=== PATIENT | male | born 1980 | race Caucasian/White ===

== ENCOUNTER 2018-03-22 12:06 | Emergency (ER) | payer SELFPAY ==
--- NOTE | 2018-03-22 13:08 | ER ---
Nurse's Notes [facility] Name: Asher Gomez Age: 37 yrs Sex: Male : 1980 Arrival Date: 03/22/2018 Time: 12:09 Bed Waiting Private MD: None, None Diagnosis: Presentation: 03/22 12:17 Presenting complaint: Patient states: "I have these spots on my elbows and one on my aj1 chest." Abscess noted to bilateral elbows, small scabbed area surrounded by redness noted to chest. Patient denies fever. Transition of care: patient was not received from another setting of care. Onset of symptoms was March 16, 2018. Risk Assessment: Do you want to hurt yourself or someone else? Patient reports no desire to harm self or others. Initial Sepsis Screen: Does the patient meet any 2 criteria? HR > 90 bpm. Does the patient have a suspected source of infection? Yes: Skin breakdown/wound. Care prior to arrival: None. 12:17 [facility] 12:17 Acuity: HERMELINDO 3 aj1 Triage Assessment: 12:20 General: Appears in no apparent distress. uncomfortable, Behavior is cooperative, aj1 restless. Pain: Complains of pain in right elbow and left elbow Pain currently is 8 out of 10 on a pain scale. Neuro: Level of Consciousness is awake, alert, obeys commands, Oriented to person, place, time, situation, Speech is normal. Cardiovascular: Patient's skin is warm and dry. Respiratory: Airway is patent Respiratory effort is even, unlabored, Respiratory pattern is regular, symmetrical. Derm: Skin is pink, warm \\T\\ dry. normal. Historical: - Allergies: 12:20 No Known Allergies; aj1 - Home Meds: 12:20 None [Active]; aj1 - PMHx: 12:20 Asthma; Bipolar disorder; Diabetes; Hypertension; Sleep Apnea; aj1 - Immunization history:: Flu vaccine is not up to date. - Social history:: Smoking status: Patient uses tobacco products, smokes one pack cigarettes per day. - Ebola Screening: : Patient denies travel to an Ebola-affected area in the 21 days before illness onset. Assessment: 13:06 Reassessment: pt not in lobby or parking lot. iw Vital Signs: 12:20 BP 130 / 101; Pulse 124; Resp 20; Temp 98.0(O); Pulse Ox 97% on R/A; Weight 120.2 kg aj1 (R); Height 5 ft. 6 in. (167.64 cm) (R); Pain 8/10; 12:20 Body Mass Index 42.77 (120.20 kg, 167.64 cm) aj1 ED Course: 12:09 Patient arrived in ED. mr 12:09 None, None is Private Physician. mr 12:19 Triage completed. aj1 12:20 Arm band placed on Patient placed in waiting room, Patient notified of wait time. aj1 12:56 Patient's name was called from ER lobby. No response. iw Administered Medications: No medications were administered Outcome: 13:07 Patient left the ED. iw Signatures: Sienna Rush, RN RN aj1 Yelena Goff mr Martha Romero, THERESA RN iw
== END 2018-03-22 13:07 | disposition left against medical advice (07) ==
LOC: ER 12:06
DX: Z53.21 Procedure and treatment not carried out due to patient leaving prior to being seen by health care provider (principal)
CPT/HCPCS: 99281

== ENCOUNTER 2018-03-23 04:38 | Emergency (ER) | payer SELFPAY ==
[2018-03-23] MEDS ORDERED: LIDOCAINE 1% MPF 5 ML VIAL ONE (05:13)
--- NOTE | 2018-03-23 05:23 | ER ---
Nurse's Notes [facility] Name: Asher Gomez Age: 37 yrs Sex: Male : 1980 Arrival Date: 03/23/2018 Time: 04:39 Bed 5 Private MD: Diagnosis: Abscess right arm Presentation: 03/23 05:03 Presenting complaint: Patient states: "I have these sores on my elbows and I think they jd3 might be infected.". Transition of care: patient was not received from another setting of care. Onset of symptoms was March 23, 2018. Risk Assessment: Do you want to hurt yourself or someone else? Patient reports no desire to harm self or others. Initial Sepsis Screen: Does the patient meet any 2 criteria? HR > 90 bpm. Yes Does the patient have a suspected source of infection? Yes: Skin breakdown/wound. Care prior to arrival: None. 05:03 Method Of Arrival: Ambulatory jd3 05:03 Acuity: HERMELINDO 4 jd3 Historical: - Allergies: 05:06 No Known Allergies; jd3 - Home Meds: 05:06 None [Active]; jd3 - PMHx: 05:06 Asthma; Bipolar disorder; Diabetes; Hypertension; Sleep Apnea; jd3 - PSHx: 05:06 None; jd3 - Immunization history:: Adult Immunizations up to date. - Social history:: Smoking status: Patient uses tobacco products, smokes one pack cigarettes per day. - Ebola Screening: : Patient negative for fever greater than or equal to 101.5 degrees Fahrenheit, and additional compatible Ebola Virus Disease symptoms. Screenin:09 Abuse screen: Denies threats or abuse. Nutritional screening: No deficits noted. jd3 Tuberculosis screening: No symptoms or risk factors identified. Fall Risk Ambulatory Aid- None/Bed Rest/Nurse Assist (0 pts). Gait- Normal/Bed Rest/Wheelchair (0 pts) Mental Status- Oriented to own ability (0 pts). Total Rodney Fall Scale indicates No Risk (0-24 pts). Assessment: 05:08 General: Appears in no apparent distress. uncomfortable, Behavior is calm, cooperative, jd3 appropriate for age. Pain: Complains of pain in right elbow and left elbow. Neuro: Level of Consciousness is awake, alert, obeys commands, Oriented to person, place, time, situation. Cardiovascular: Capillary refill < 3 seconds Patient's skin is warm and dry. Respiratory: Airway is patent Respiratory effort is even, unlabored, Respiratory pattern is regular, symmetrical. GI: No signs and/or symptoms were reported involving the gastrointestinal system. : No signs and/or symptoms were reported regarding the genitourinary system. EENT: No signs and/or symptoms were reported regarding the EENT system. Derm: Skin is intact, Skin is dry, Skin is normal, Skin temperature is warm Wound noted right elbow and left elbow Wound is wounds are open, with swelling and redness noted. Musculoskeletal: Circulation, motion, and sensation intact. Range of motion: intact in all extremities. 05:30 Reassessment: Patient appears in no apparent distress at this time. Patient and/or jd3 family updated on plan of care and expected duration. Pain level reassessed. Patient is alert, oriented x 3, equal unlabored respirations, skin warm/dry/pink. Vital Signs: 05:06 BP 149 / 109; Pulse 113; Resp 16 S; Temp 98.6(O); Pulse Ox 98% on R/A; Weight 120.2 kg jd3 (R); Height 5 ft. 6 in. (167.64 cm) (R); Pain 8/10; 05:06 Body Mass Index 42.77 (120.20 kg, 167.64 cm) jd3 ED Course: 04:39 Patient arrived in ED. am2 04:54 Hunter Rios MD is Attending Physician. pkl 04:54 Paulo Garcia, RN is Primary Nurse. jd3 05:05 Triage completed. jd3 05:07 Arm band placed on. jd3 05:09 Patient has correct armband on for positive identification. Bed in low position. Call j light in reach. Side rails up X 1. 05:20 Assist provider with I \\T\\ D: of an abscess on right upper arm Set up I\\T\\D tray. Performed tl 1 by Hunter Rios MD Culture sent to lab. Wound packed. iodoform gauze, Dressing with 4X4s, Patient tolerated well. Patient did not have IV access during this emergency room visit. 05:23 Eyad Hurtado MD is Referral Physician. pkl Administered Medications: 05:29 Drug: Bactrim (160 mg-800 mg (DS) 1 tablet Route: PO; jd3 05:29 Follow up: Response: Medication administered at discharge. jd3 Outcome: 05:23 Discharge ordered by . pkmayuri 05:30 Discharged to home ambulatory. jd3 05:30 Condition: stable 05:30 Discharge instructions given to patient, Instructed on discharge instructions, follow up and referral plans. medication usage, Demonstrated understanding of instructions, follow-up care, medications, Prescriptions given X 1. 05:31 Patient left the ED. jd3 Addendum: 03/26/2018 07:31 Addendum: Culture Results: Positive wound culture. No further action required. Bacteria i w sensitive to prescribed antibiotic. Signatures: Hunter Rios MD MD pkl Martha Romero RN RN iw Martha Odonnell RN RN tl1 Marcella Aguliera Jonathon, RN RN jd3
--- NOTE | 2018-03-23 05:24 | EDPHYS ---
Physician Documentation [facility] Name: Asher Gomez Age: 37 yrs Sex: Male : 1980 Arrival Date: 03/23/2018 Time: 04:39 Bed 5 Private MD: ED Physician Hunter Rios HPI: 03/23 05:19 This 37 yrs old Male presents to ER via Ambulatory with complaints of Skin pkl Problem. 05:19 The patient presents with an abscess of the right arm. Description: draining, pkl fluctuant, tense. Onset: The symptoms/episode began/occurred 4 day(s) ago. Historical: - Allergies: 05:06 No Known Allergies; jd3 - Home Meds: 05:06 None [Active]; jd3 - PMHx: 05:06 Asthma; Bipolar disorder; Diabetes; Hypertension; Sleep Apnea; jd3 - PSHx: 05:06 None; jd3 - Immunization history:: Adult Immunizations up to date. - Social history:: Smoking status: Patient uses tobacco products, smokes one pack cigarettes per day. - Ebola Screening: : Patient negative for fever greater than or equal to 101.5 degrees Fahrenheit, and additional compatible Ebola Virus Disease symptoms. ROS: 05:19 Eyes: Negative for injury, pain, redness, and discharge, ENT: Negative for injury, pkl pain, and discharge, Neck: Negative for injury, pain, and swelling, Cardiovascular: Negative for chest pain, palpitations, and edema, Respiratory: Negative for shortness of breath, cough, wheezing, and pleuritic chest pain, Abdomen/GI: Negative for abdominal pain, nausea, vomiting, diarrhea, and constipation, Back: Negative for injury and pain, : Negative for injury, bleeding, discharge, and swelling, MS/Extremity: Negative for injury and deformity. 05:19 Skin: Positive for abscess, of the right arm. 05:19 Neuro: Negative for altered mental status. Exam: 05:19 Head/Face: Normocephalic, atraumatic. Eyes: Pupils equal round and reactive to light, pkl extra-ocular motions intact. Lids and lashes normal. Conjunctiva and sclera are non-icteric and not injected. Cornea within normal limits. Periorbital areas with no swelling, redness, or edema. ENT: Nares patent. No nasal discharge, no septal abnormalities noted. Tympanic membranes are normal and external auditory canals are clear. Oropharynx with no redness, swelling, or masses, exudates, or evidence of obstruction, uvula midline. Mucous membranes moist. Neck: Trachea midline, no thyromegaly or masses palpated, and no cervical lymphadenopathy. Supple, full range of motion without nuchal rigidity, or vertebral point tenderness. No Meningismus. Chest/axilla: Normal chest wall appearance and motion. Nontender with no deformity. No lesions are appreciated. Cardiovascular: Regular rate and rhythm with a normal S1 and S2. No gallops, murmurs, or rubs. Normal PMI, no JVD. No pulse deficits. Respiratory: Lungs have equal breath sounds bilaterally, clear to auscultation and percussion. No rales, rhonchi or wheezes noted. No increased work of breathing, no retractions or nasal flaring. Abdomen/GI: Soft, non-tender, with normal bowel sounds. No distension or tympany. No guarding or rebound. No evidence of tenderness throughout. Back: No spinal tenderness. No costovertebral tenderness. Full range of motion. Neuro: Awake and alert, GCS 15, oriented to person, place, time, and situation. Cranial nerves II-XII grossly intact. Motor strength 5/5 in all extremities. Sensory grossly intact. Cerebellar exam normal. Normal gait. 05:19 Skin: abscess, that is moderate sized, approximately 3 cm(s), with drainage, with induration. Vital Signs: 05:06 BP 149 / 109; Pulse 113; Resp 16 S; Temp 98.6(O); Pulse Ox 98% on R/A; Weight 120.2 kg jd3 (R); Height 5 ft. 6 in. (167.64 cm) (R); Pain 8/10; 05:06 Body Mass Index 42.77 (120.20 kg, 167.64 cm) jd3 Procedures: 05:19 I \T\ D: Incision and drainage was performed for an abscess of the right Prepped with pkl Betadine, Anesthetized with 3 ml's 1% Lidocaine. Incised with #11 blade. Drained purulent fluid. bloody fluid. Packed with iodoform gauze, Dressing: sterile 4x4 gauze, the patient tolerated the procedure well. MDM: 04:54 Patient medically screened. [facility] 05:19 Data reviewed: vital signs, nurses notes. pkl 03/23 05:20 Order name: Wound Culture bb 03/23 05:20 Order name: Wound Culture bb Administered Medications: 05:29 Drug: Bactrim (160 mg-800 mg (DS) 1 tablet Route: PO; jd3 05:29 Follow up: Response: Medication administered at discharge. jd3 Disposition: 03/23/18 05:23 Discharged to Home. Impression: Abscess right arm. - Condition is Stable. - Prescriptions for Bactrim DS 800- 160 mg Oral Tablet - take 1 tablet by ORAL route every 12 hours for 10 days; 20 tablet. - Medication Reconciliation Form, Thank You Letter, Antibiotic Education, Prescription Opioid Use form. - Follow up: Eyad Hurtado MD; When: 2 - 3 days; Reason: Re-evaluation by your physician. - Problem is new. - Symptoms have improved. Signatures: Dispatcher [employer] EDMS Hunter Rios MD MD pkPaulo Mohan RN RN jd3 Corrections: (The following items were deleted from the chart) 05:31 05:23 03/23/2018 05:23 Discharged to Home. Impression: Abscess right arm. Condition is jd3 Stable. Forms are Medication Reconciliation Form, Thank You Letter, Antibiotic Education, Prescription Opioid Use. Follow up: Eyad Hurtado; When: 2 - 3 days; Reason: Re-evaluation by your physician. Problem is new. Symptoms have improved. pkl
[2018-03-23] MEDS ORDERED: SMZ./TMP. 800/160 MG TABLET ONE (05:30)
== END 2018-03-23 05:31 | disposition home or self-care (01) ==
LOC: ER 04:38
PROC: 0J9D0ZZ Drainage of Right Upper Arm Subcutaneous Tissue and Fascia, Open Approach (ICD-10-PCS; principal; 2018-03-23)
DX: L02.413 Cutaneous abscess of right upper limb (principal); B95.62 Methicillin resistant Staphylococcus aureus infection as the cause of diseases classified elsewhere; J45.909 Unspecified asthma, uncomplicated; F17.210 Nicotine dependence, cigarettes, uncomplicated; E11.9 Type 2 diabetes mellitus without complications; I10 Essential (primary) hypertension; G47.30 Sleep apnea, unspecified
CPT/HCPCS: 87070; 87077; 87186; 87205; 99284

== ENCOUNTER 2018-11-13 19:23 | Emergency (ER) | payer SELFPAY ==
--- NOTE | 2018-11-13 19:55 | EDPHYS ---
Physician Documentation [facility] Name: Asher Gomez Age: 38 yrs Sex: Male : 1980 Arrival Date: 11/13/2018 Time: 19:26 Bed 24 Private MD: None, None ED Physician Sebastian Roberto HPI: 11/13 19:54 This 38 yrs old Male presents to ER via Ambulatory with complaints of Back kb Pain. 19:54 The patient presents with pain that is acute, with no known mechanism of injury. The kb symptoms are located in the sacrum. Onset: The symptoms/episode began/occurred 3 week(s) ago. The pain does not radiate. Associated signs and symptoms: Pertinent positives: none. The problem was sustained without known cause. Modifying factors: The patient symptoms are alleviated by nothing, the patient symptoms are aggravated by any movement. Severity of symptoms: At their worst the symptoms were moderate, in the emergency department the symptoms are unchanged. The patient has not experienced similar symptoms in the past. The patient has not recently seen a physician. Historical: - Allergies: 19:33 No Known Allergies; aj1 - Home Meds: 19:33 None [Active]; aj1 - PMHx: 19:33 Asthma; Bipolar disorder; Diabetes; Hypertension; Sleep Apnea; aj1 - Immunization history:: Flu vaccine is not up to date. - Social history:: Smoking status: Patient uses tobacco products, smokes one pack cigarettes per day. - Ebola Screening: : Patient denies travel to an Ebola-affected area in the 21 days before illness onset. ROS: 19:53 Constitutional: Negative for fever, chills, and weight loss, Cardiovascular: Negative kb for chest pain, palpitations, and edema, Respiratory: Negative for shortness of breath, cough, wheezing, and pleuritic chest pain, Abdomen/GI: Negative for abdominal pain, nausea, vomiting, diarrhea, and constipation, : Negative for injury, bleeding, discharge, and swelling, MS/Extremity: Negative for injury and deformity, Skin: Negative for injury, rash, and discoloration, Neuro: Negative for headache, weakness, numbness, tingling, and seizure. 19:53 Back: Positive for pain at rest, pain with movement, of the sacrum. Exam: 19:53 Constitutional: This is a well developed, well nourished patient who is awake, alert, kb and in no acute distress. Head/Face: Normocephalic, atraumatic. Chest/axilla: Normal chest wall appearance and motion. Nontender with no deformity. No lesions are appreciated. Cardiovascular: Regular rate and rhythm with a normal S1 and S2. No gallops, murmurs, or rubs. Normal PMI, no JVD. No pulse deficits. Respiratory: Lungs have equal breath sounds bilaterally, clear to auscultation and percussion. No rales, rhonchi or wheezes noted. No increased work of breathing, no retractions or nasal flaring. Abdomen/GI: Soft, non-tender, with normal bowel sounds. No distension or tympany. No guarding or rebound. No evidence of tenderness throughout. Back: No spinal tenderness. No costovertebral tenderness. Full range of motion. Skin: Warm, dry with normal turgor. Normal color with no rashes, no lesions, and no evidence of cellulitis. MS/ Extremity: Pulses equal, no cyanosis. Neurovascular intact. Full, normal range of motion. Neuro: Awake and alert, GCS 15, oriented to person, place, time, and situation. Cranial nerves II-XII grossly intact. Motor strength 5/5 in all extremities. Sensory grossly intact. Cerebellar exam normal. Normal gait. Vital Signs: 19:33 BP 133 / 96; Pulse 122; Resp 18; Temp 97.2; Pulse Ox 97% on R/A; Weight 104.33 kg (R); aj1 Height 5 ft. 6 in. (167.64 cm); 19:33 Pain 8/10; aj1 20:03 BP 125 / 88 LA (auto/lg); Pulse 101; Resp 18; Temp 99.6(O); Pulse Ox 96% ; Pain 7/10; jp3 19:33 Body Mass Index 37.12 (104.33 kg, 167.64 cm) aj1 MDM: 19:46 Patient medically screened. kb 19:53 Data reviewed: vital signs, nurses notes. Data interpreted: Pulse oximetry: on room air kb is 97 %. Interpretation: normal. Counseling: I had a detailed discussion with the patient and/or guardian regarding: the historical points, exam findings, and any diagnostic results supporting the discharge/admit diagnosis, the need for outpatient follow up, a family practitioner, to return to the emergency department if symptoms worsen or persist or if there are any questions or concerns that arise at home. 11/13 19:52 Order name: Vital Signs; Complete Time: 20:03 kb Administered Medications: No medications were administered Disposition: 11/13/18 19:54 Discharged to Home. Impression: Low back pain. - Condition is Stable. - Discharge Instructions: Back Injury Prevention, [id number], Back Pain, Adult, Opuh-tm-[id number], Back Exercises, Miob-by-Hwcn. - Prescriptions for Cyclobenzaprine 10 mg Oral Tablet - take 1 tablet by ORAL route every 8 hours As needed; 21 tablet. - Medication Reconciliation Form, Thank You Letter, Antibiotic Education, Prescription Opioid Use form. - Follow up: Private Physician; When: 2 - 3 days; Reason: Recheck today's complaints, Continuance of care, Re-evaluation by your physician. Follow up: Emergency Department; When: As needed; Reason: Worsening of condition. Addendum: 11/16/2018 11:12 Co-signature as Attending Physician, Sebastian Roberto MD I agree with the assessment and c drake plan of care. Signatures: Sybil Casillas, NARESH-C WAREHOUSE SUPERVISOR-Sienna Munoz RN RN aj1 Sebastian Roberto MD MD cha Bryson, James, RN RN jb4 Corrections: (The following items were deleted from the chart) 11/13 20:18 19:54 11/13/2018 19:54 Discharged to Home. Impression: Low back pain. Condition is jb4 Stable. Forms are Medication Reconciliation Form, Thank You Letter, Antibiotic Education, Prescription Opioid Use. Follow up: Private Physician; When: 2 - 3 days; Reason: Recheck today's complaints, Continuance of care, Re-evaluation by your physician. Follow up: Emergency Department; When: As needed; Reason: Worsening of condition. kb
--- NOTE | 2018-11-13 19:55 | ER ---
Nurse's Notes [facility] Name: Asher Gomez Age: 38 yrs Sex: Male : 1980 Arrival Date: 11/13/2018 Time: 19:26 Bed 24 Private MD: None, None Diagnosis: Low back pain Presentation: 11/13 19:32 Presenting complaint: Patient states: "3 weeks ago I had my sciatic nerve hurting and aj1 now its at the point where I can barely get up or down. Every time I try to get up its like a shocking pain" Patient reports that he has been taking ibuprofen at home with no relief. Transition of care: patient was not received from another setting of care. Onset of symptoms was 2018. Risk Assessment: Do you want to hurt yourself or someone else? Patient reports no desire to harm self or others. Initial Sepsis Screen: Does the patient meet any 2 criteria? No. Patient's initial sepsis screen is negative. Does the patient have a suspected source of infection? No. Patient's initial sepsis screen is negative. Care prior to arrival: None. 19:32 Method Of Arrival: Ambulatory aj 19:32 Acuity: HERMELINDO 4 aj1 Triage Assessment: 19:33 General: Appears in no apparent distress. uncomfortable, Behavior is calm, cooperative, aj1 appropriate for age. Pain: Complains of pain in back Pain currently is 8 out of 10 on a pain scale. Neuro: Level of Consciousness is awake, alert, obeys commands. Cardiovascular: Patient's skin is warm and dry. Respiratory: Airway is patent Respiratory effort is even, unlabored, Respiratory pattern is regular, symmetrical. Musculoskeletal: Range of motion: intact in all extremities. Historical: - Allergies: 19:33 No Known Allergies; aj1 - Home Meds: 19:33 None [Active]; aj1 - PMHx: 19:33 Asthma; Bipolar disorder; Diabetes; Hypertension; Sleep Apnea; aj1 - Immunization history:: Flu vaccine is not up to date. - Social history:: Smoking status: Patient uses tobacco products, smokes one pack cigarettes per day. - Ebola Screening: : Patient denies travel to an Ebola-affected area in the 21 days before illness onset. Screenin:45 Abuse screen: Denies threats or abuse. Nutritional screening: No deficits noted. jb4 Tuberculosis screening: No symptoms or risk factors identified. Fall Risk None identified. Assessment: 19:45 General: Appears in no apparent distress. uncomfortable, Behavior is calm, cooperative, jb4 appropriate for age. Pain: Complains of pain in sacrum Pain radiates to back and left leg Pain currently is 7 out of 10 on a pain scale. at worst was 10 out of 10 on a pain scale. Quality of pain is described as shooting, stabbing, jolting Pain began 3 weeks ago. Neuro: Level of Consciousness is awake, alert, obeys commands, Oriented to person, place, time, situation, Moves all extremities. Full function. Cardiovascular: Patient's skin is warm and dry. Respiratory: Airway is patent Respiratory effort is even, unlabored, Respiratory pattern is regular, symmetrical. GI: No signs and/or symptoms were reported involving the gastrointestinal system. : No signs and/or symptoms were reported regarding the genitourinary system. EENT: No signs and/or symptoms were reported regarding the EENT system. Derm: Skin is intact, Skin is pink, warm \\T\\ dry. Musculoskeletal: Circulation, motion, and sensation intact. Range of motion: intact in all extremities. Vital Signs: 19:33 BP 133 / 96; Pulse 122; Resp 18; Temp 97.2; Pulse Ox 97% on R/A; Weight 104.33 kg (R); aj1 Height 5 ft. 6 in. (167.64 cm); 19:33 Pain 8/10; aj1 20:03 BP 125 / 88 LA (auto/lg); Pulse 101; Resp 18; Temp 99.6(O); Pulse Ox 96% ; Pain 7/10; jp3 19:33 Body Mass Index 37.12 (104.33 kg, 167.64 cm) aj1 ED Course: 19:26 Patient arrived in ED. mr 19:26 None, None is Private Physician. mr 19:33 Triage completed. aj1 19:33 Arm band placed on Patient placed in an exam room. aj1 19:44 Eyad Pierre, RN is Primary Nurse. jb4 19:45 Patient has correct armband on for positive identification. Bed in low position. Call jb4 light in reach. Side rails up X 1. Pulse ox on. NIBP on. 19:46 Sybil Casillas FNP-C is PHCP. kb 19:46 Sebastian Roberto MD is Attending Physician. kb 20:00 No provider procedures requiring assistance completed. Patient did not have IV access jb4 during this emergency room visit. Administered Medications: No medications were administered Outcome: 19:54 Discharge ordered by . kb 20:00 Discharged to home ambulatory. jb4 20:00 Condition: stable 20:00 Discharge instructions given to patient, Instructed on discharge instructions, follow up and referral plans. medication usage, Demonstrated understanding of instructions, follow-up care, medications, Prescriptions given X 1. 20:18 Patient left the ED. jb4 Signatures: Sybil Casillas FNP-C ETHYLENE [employer] PANELBOARD OPERATOR-Sienna Munoz, RN RN aj1 Alysha Goff James, RN RN jb4 [place] jp3
== END 2018-11-13 20:18 | disposition home or self-care (01) ==
LOC: ER 19:23
DX: M54.5 Low back pain (principal); I10 Essential (primary) hypertension; F17.210 Nicotine dependence, cigarettes, uncomplicated
CPT/HCPCS: 99283

== ENCOUNTER 2019-01-22 22:33 | Inpatient (IN) | payer SELFPAY ==
[2019-01-22 23:35] LABS: Absolute Lymphocytes (CBC) 1.8 K/uL (0.7-4.9); Absolute Monocytes 1.4 K/uL (0.1-1.3); Absolute Neutrophil 14.6 K/uL (1.8-8.0); Basophils % 0.4 % (0-1.3); Eosinophils % 0.1 % (0-4.4); Hematocrit 47.3 % (39.6-49.0); Lymphocytes % 10.3 % (15.3-44.8); MPV 10.3 fL (7.6-11.3); Monocytes % 7.7 % (3.3-12.3); RBC Red Blood Cell Count 5.37 M/uL (4.33-5.43)
[2019-01-22 23:50] LABS: Albumin 4.7 g/dL (3.4-5.0); Bilirubin Direct 0.3 mg/dL (0-0.2); Bilirubin Total 1.2 mg/dL (0.2-1.0); Potassium 3.6 mmol/L (3.5-5.1); Protein, Total 9.3 g/dL (6.4-8.2)
[2019-01-23 01:03] LABS: Calcium Oxalate Crystals- Ur FEW (NONE SEEN); Urine Bacteria 20-50 /HPF (NONE SEEN); Urine Culture Reflex Order REFLEXED; Urine RBC NONE SEEN /HPF (NONE SEEN)
[2019-01-23] MEDS ORDERED: ONDANSETRON 4 MG/2 ML VIAL ONE (01:42)
[2019-01-23] MEDS ORDERED: NA CHLORIDE 0.9% 1,000 ML ONE (01:42)
[2019-01-23] MEDS ORDERED: LIDOCAINE VISCOUS 2% SOLN 15 ML UDC ONE (01:42)
[2019-01-23] MEDS ORDERED: MAGNE/ALUM HYDROXD 30 ML UCUP ONE (01:42)
[2019-01-23] MEDS ORDERED: PANTOPRAZOLE 40 MG INJ ONE (01:42)
--- NOTE | 2019-01-23 02:40 | EDPHYS ---
Physician Documentation [facility] Name: Asher Gomez Age: 38 yrs Sex: Male : 1980 Arrival Date: 01/22/2019 Time: 22:40 Bed 28 Private MD: ED Physician Chinmay Mckenzie HPI: 01/23 03:37 This 38 yrs old Male presents to ER via Wheelchair with complaints of tw4 Abdominal Pain. 03:37 The patient presents with abdominal pain in the epigastric area. Onset: The tw4 symptoms/episode began/occurred today. The symptoms do not radiate. Associated signs and symptoms: none. The symptoms are described as dull. Modifying factors: The symptoms are alleviated by nothing, the symptoms are aggravated by nothing. Severity of pain: At its worst the pain was moderate in the emergency department the pain. The patient has not experienced similar symptoms in the past. Historical: - Allergies: 01/22 22:54 No Known Allergies; ca1 - Home Meds: 22:54 None [Active]; ca1 - PMHx: 22:54 Asthma; Bipolar disorder; Diabetes; Hypertension; Sleep Apnea; ca1 - PSHx: 22:54 None; ca1 - Immunization history:: Adult Immunizations not up to date, Flu vaccine is not up to date. - Social history:: Smoking status: Patient uses tobacco products, smokes one-half pack cigarettes per day. - Ebola Screening: : Patient negative for fever greater than or equal to 101.5 degrees Fahrenheit, and additional compatible Ebola Virus Disease symptoms Patient denies exposure to infectious person Patient denies travel to an Ebola-affected area in the 21 days before illness onset. ROS: 01/23 03:37 Constitutional: Negative for fever, chills, and weight loss, Cardiovascular: Negative tw4 for chest pain, palpitations, and edema, Respiratory: Negative for shortness of breath, cough, wheezing, and pleuritic chest pain, Back: Negative for injury and pain, Neuro: Negative for headache, weakness, numbness, tingling, and seizure, Psych: Negative for depression, anxiety, suicide ideation, homicidal ideation, and hallucinations. Constitutional: Positive for Abdomen/GI: Positive for abdominal pain, abdominal cramps, abdominal distension. Exam: 03:37 Constitutional: This is a well developed, well nourished patient who is awake, alert, tw4 and in no acute distress. Cardiovascular: Regular rate and rhythm with a normal S1 and S2. No gallops, murmurs, or rubs. Normal PMI, no JVD. No pulse deficits. Respiratory: Lungs have equal breath sounds bilaterally, clear to auscultation and percussion. No rales, rhonchi or wheezes noted. No increased work of breathing, no retractions or nasal flaring. 03:37 Abdomen/GI: Soft, non-tender, with normal bowel sounds. No distension or tympany. No guarding or rebound. No evidence of tenderness throughout. Back: No spinal tenderness. No costovertebral tenderness. Full range of motion. MS/ Extremity: Pulses equal, no cyanosis. Neurovascular intact. Full, normal range of motion. Neuro: Awake and alert, GCS 15, oriented to person, place, time, and situation. Cranial nerves II-XII grossly intact. Motor strength 5/5 in all extremities. Sensory grossly intact. Cerebellar exam normal. Normal gait. Vital Signs: 01/22 22:54 BP 134 / 94; Pulse 102; Resp 19 S; Temp 97.8(O); Pulse Ox 94% on R/A; Weight 111.13 kg; ca1 Height 5 ft. 6 in. (167.64 cm); Pain 8/10; 23:59 BP 112 / 83; Pulse 90; Resp 18 S; Pulse Ox 96% on R/A; ca1 01/23 00:30 BP 116 / 88; Pulse 86; Resp 17; Pulse Ox 96% ; rv 01:30 BP 118 / 72; Pulse 89; Resp 17; Pulse Ox 100% ; rv 02:00 BP 117 / 81; Pulse 81; Resp 17; Temp 98; Pulse Ox 99% ; rv 03:00 BP 133 / 86; Pulse 87; Resp 16; Pulse Ox 97% ; rv 01/22 22:54 Body Mass Index 39.54 (111.13 kg, 167.64 cm) ca1 MDM: 01/22 23:03 Patient medically screened. tw4 01/23 03:37 Data reviewed: vital signs, nurses notes. Data interpreted: Pulse oximetry:. tw4 Counseling: I had a detailed discussion with the patient and/or guardian regarding: the historical points, exam findings, and any diagnostic results supporting the discharge/admit diagnosis, radiology results. Physician consultation: Lori Gomez MD regarding admission, and will see patient in ED. 01/22 23:02 Order name: Basic Metabolic Panel [facility] 01/22 23:02 Order name: CBC with Diff; Complete Time: 00:20 tw 01/23 00:22 Interpretation: Normal except: WBC 17.9; ALEXUS% 81.5; LYM% 10.3; NEUT A 14.6. tw 01/22 23:02 Order name: Creatinine for Radiology; Complete Time: 00:44 [facility] 01/23 00:44 Interpretation: Normal except: CRE 2.81; GFR 25. tw 01/22 23:02 Order name: Hepatic Function; Complete Time: 00:44 [facility] 01/23 00:44 Interpretation: AST 94; BILIT 1.2; BILID 0.3; TP 9.3; GLOB 4.6; A/G 1.0. [facility] 01/22 23:02 Order name: Lipase; Complete Time: 00:44 [facility] 01/23 00:44 Interpretation: Within normal limits: LIP 94. [facility] 01/22 23:02 Order name: Urine Microscopic Only [facility] 01/22 23:03 Order name: Basic Metabolic Panel; Complete Time: 00:44 [facility] 01/23 00:44 Interpretation: Normal except: GLUC 167; NA 134; BUN 60; CRE 2.73; GFR 26. [facility] 01/23 00:47 Order name: Abdomen [facility] 01/23 01:08 Order name: Urine Culture [facility] 01/23 03:04 Order name: Thorax Wo Con [facility] 01/22 23:02 Order name: IV Saline Lock; Complete Time: 23:08 [facility] 01/22 23:02 Order name: Labs collected and sent; Complete Time: 23:08 [facility] 01/22 23:02 Order name: Urine Dipstick-Ancillary (obtain specimen); Complete Time: 23:18 [facility] 01/23 03:03 Order name: CONS Physician Consult [facility] 01/23 03:03 Order name: NPO [facility] Administered Medications: 01:45 Drug: GI Cocktail without - (Maalox Suspension 30 ml, Lidocaine Liquid 2 % 15 rv ml) Route: PO; 03:03 Follow up: Response: Marked relief of symptoms rv 01:45 Drug: NS 0.9% 1000 ml Route: IV; Rate: 1 bolus; Site: left antecubital; rv 03:03 Follow up: IV Status: Completed infusion; IV Intake: 1000ml rv 01:46 Drug: Zofran 4 mg Route: IVP; Site: left antecubital; rv 03:03 Follow up: Response: Marked relief of symptoms rv 01:48 Drug: ProTONIX 40 mg Route: IVP; Site: left antecubital; rv 03:02 Follow up: Response: Marked relief of symptoms rv Disposition: 01/23/19 02:39 Hospitalization ordered by Lori Gomez for Inpatient Admission. Preliminary diagnosis are Acute kidney failure, Dehydration, Cyclical vomiting, intractable. - Bed requested for Telemetry/MedSurg (Inpatient). - Status is Inpatient Admission. fc - Condition is Stable. - Problem is new. - Symptoms have improved. UTI on Admission? No Signatures: Dispatcher [employer] [facility] Hope Roman RN RN Nelia Gaffney RN RN Chinmay Mckenzie MD MD tw4 Lan Alves RN RN Collette Carrizales RN THERESA ca1 Corrections: (The following items were deleted from the chart) 00:47 00:22 Abdomen Pelvis W Con+CT.RAD.BRZ ordered. [facility] 03:15 02:39 Hospitalization Ordered by Lori Gomez MD for Inpatient Admission. Preliminary diagnosis is Acute kidney failure; Dehydration; Cyclical vomiting, intractable. Bed requested for Telemetry/MedSurg (Inpatient). Status is Inpatient Admission. Condition is Stable. Problem is new. Symptoms have improved. UTI on Admission? No. tw4 03:55 03:15 01/23/2019 02:39 Hospitalization Ordered by Lori Gomez MD for Inpatient fc Admission. Preliminary diagnosis is Acute kidney failure; Dehydration; Cyclical vomiting, intractable. Bed requested for Telemetry/MedSurg (Inpatient). Status is Inpatient Admission. Condition is Stable. Problem is new. Symptoms have improved. UTI on Admission? No. mw
--- NOTE | 2019-01-23 02:40 | ER ---
Nurse's Notes [facility] Name: Asher Gomez Age: 38 yrs Sex: Male : 1980 Arrival Date: 01/22/2019 Time: 22:40 Bed 28 Private MD: Diagnosis: Acute kidney failure;Dehydration;Cyclical vomiting, intractable Presentation: 01/22 22:52 Presenting complaint: Patient states: "I have abdominal pain since this morning and I ca1 have been throwing up as well." Pt Denies diarrhea and constipation. Transition of care: patient was not received from another setting of care. Onset of symptoms was January 22, 2019. Risk Assessment: Do you want to hurt yourself or someone else? Patient reports no desire to harm self or others. Initial Sepsis Screen: Does the patient meet any 2 criteria? No. Patient's initial sepsis screen is negative. Does the patient have a suspected source of infection? No. Patient's initial sepsis screen is negative. Care prior to arrival: None. 22:52 Method Of Arrival: Wheelchair ca1 22:52 Acuity: HERMELINDO 3 ca1 Triage Assessment: 22:54 General: Appears in no apparent distress. comfortable, Behavior is calm, cooperative, ca1 appropriate for age. Pain: Complains of pain in right upper quadrant and left upper quadrant Pain does not radiate. Pain currently is 8 out of 10 on a pain scale. Pain began this morning. GI: Abdomen is flat, non-distended, Bowel sounds present X 4 quads. Abd is soft and non tender X 4 quads. Reports nausea, vomiting, since this morning. Historical: - Allergies: 22:54 No Known Allergies; ca1 - Home Meds: 22:54 None [Active]; ca1 - PMHx: 22:54 Asthma; Bipolar disorder; Diabetes; Hypertension; Sleep Apnea; ca1 - PSHx: 22:54 None; ca1 - Immunization history:: Adult Immunizations not up to date, Flu vaccine is not up to date. - Social history:: Smoking status: Patient uses tobacco products, smokes one-half pack cigarettes per day. - Ebola Screening: : Patient negative for fever greater than or equal to 101.5 degrees Fahrenheit, and additional compatible Ebola Virus Disease symptoms Patient denies exposure to infectious person Patient denies travel to an Ebola-affected area in the 21 days before illness onset. Screenin:00 Abuse screen: Denies threats or abuse. Denies injuries from another. Nutritional ca1 screening: No deficits noted. Tuberculosis screening: No symptoms or risk factors identified. Fall Risk IV access (20 points). Ambulatory Aid- Crutches/Cane/Walker (15 pts). Assessment: 23:00 General: Appears in no apparent distress. comfortable, unkempt, Behavior is calm, ca1 cooperative, appropriate for age. General: Appears. Pain: Complains of pain in abdomen and left upper quadrant and right upper quadrant Pain does not radiate. Pain currently is 8 out of 10 on a pain scale. Pain began this morning. Neuro: Level of Consciousness is awake, alert, obeys commands, Oriented to person, place, time, situation. Cardiovascular: Heart tones S1 S2 present Capillary refill < 3 seconds Patient's skin is warm and dry. Respiratory: Airway is patent Respiratory effort is even, unlabored, Respiratory pattern is regular, symmetrical, Breath sounds are clear bilaterally. GI: Abdomen is round non-distended, Bowel sounds present X 4 quads. Abd is soft and non tender X 4 quads. GI: Reports vomiting, since this morning. : No deficits noted. No signs and/or symptoms were reported regarding the genitourinary system. EENT: No deficits noted. No signs and/or symptoms were reported regarding the EENT system. Derm: Skin is intact, is healthy with good turgor, Skin is pink, warm \\T\\ dry. Musculoskeletal: Circulation, motion, and sensation intact. Capillary refill < 3 seconds, Range of motion: intact in all extremities. 23:59 Reassessment: Patient appears in no apparent distress at this time. Patient and/or ca1 family updated on plan of care and expected duration. Pain level reassessed. Patient is alert, oriented x 3, equal unlabored respirations, skin warm/dry/pink. 01/23 00:39 Reassessment: Patient appears in no apparent distress at this time. Patient and/or rv family updated on plan of care and expected duration. Pain level reassessed. Patient is alert, oriented x 3, equal unlabored respirations, skin warm/dry/pink. 01:13 Reassessment: patient came in to see and check for the patient. left a number in case rv patient needs transport upon discharge. [phone] Graham Collins. 02:27 Reassessment: patient is for admission. awaiting orders. rv 03:33 Reassessment: Patient appears in no apparent distress at this time. Patient and/or jd3 family updated on plan of care and expected duration. Pain level reassessed. Patient is alert, oriented x 3, equal unlabored respirations, skin warm/dry/pink. report given to Briana CARDENAS. Vital Signs: 01/22 22:54 BP 134 / 94; Pulse 102; Resp 19 S; Temp 97.8(O); Pulse Ox 94% on R/A; Weight 111.13 kg; ca1 Height 5 ft. 6 in. (167.64 cm); Pain 8/10; 23:59 BP 112 / 83; Pulse 90; Resp 18 S; Pulse Ox 96% on R/A; ca1 01/23 00:30 BP 116 / 88; Pulse 86; Resp 17; Pulse Ox 96% ; rv 01:30 BP 118 / 72; Pulse 89; Resp 17; Pulse Ox 100% ; rv 02:00 BP 117 / 81; Pulse 81; Resp 17; Temp 98; Pulse Ox 99% ; rv 03:00 BP 133 / 86; Pulse 87; Resp 16; Pulse Ox 97% ; rv 01/22 22:54 Body Mass Index 39.54 (111.13 kg, 167.64 cm) ca1 ED Course: 01/22 22:40 Patient arrived in ED. ag3 22:43 Collette Carrizales, RN is Primary Nurse. ca1 22:53 Triage completed. ca1 22:54 Arm band placed on right wrist. ca1 23:00 Patient has correct armband on for positive identification. Placed in gown. Bed in low ca1 position. Call light in reach. Side rails up X 1. Pulse ox on. NIBP on. Warm blanket given. 23:00 No provider procedures requiring assistance completed. ca1 23:02 Chinmay Mckenzie MD is Attending Physician. tw4 23:09 Inserted saline lock: 20 gauge in left antecubital area, using aseptic technique. Blood rv collected. 01/23 01:22 Abdomen In Process Unspecified. EDMS 02:38 Lori Gomez MD is Hospitalizing Provider. tw4 03:09 Report given to Paulo. rv 03:35 Patient admitted, IV remains in place. jd3 Administered Medications: 01:45 Drug: GI Cocktail without - (Maalox Suspension 30 ml, Lidocaine Liquid 2 % 15 rv ml) Route: PO; 03:03 Follow up: Response: Marked relief of symptoms rv 01:45 Drug: NS 0.9% 1000 ml Route: IV; Rate: 1 bolus; Site: left antecubital; rv 03:03 Follow up: IV Status: Completed infusion; IV Intake: 1000ml rv 01:46 Drug: Zofran 4 mg Route: IVP; Site: left antecubital; rv 03:03 Follow up: Response: Marked relief of symptoms rv 01:48 Drug: ProTONIX 40 mg Route: IVP; Site: left antecubital; rv 03:02 Follow up: Response: Marked relief of symptoms rv Intake: 03:03 IV: 1000ml; Total: 1000ml. rv Outcome: 02:39 Decision to Hospitalize by Provider. tw4 03:34 Admitted to Med/surg accompanied by tech, via stretcher, room 213, with chart, Report jd3 called to Briana CARDENAS 03:34 Condition: stable 03:34 Instructed on the need for admit, Demonstrated understanding of instructions. 03:55 Patient left the ED. fc Signatures: Dispatcher [employer] EDMS Nelia Gaffney RN RN fc Paulo Garcia RN RN jd3 Chinmay Mckenzie MD MD tw4 Lan Alves, RN RN rv Janie Valdez ag3 Collette Carrizales RN RN ca1 Corrections: (The following items were deleted from the chart) 01/22 22:56 22:54 GI: Abdomen is flat, non-distended, Bowel sounds present X 4 quads. Abd is soft ca1 and non tender X 4 quads. ca1
[2019-01-23] MEDS ORDERED: ONDANSETRON 4 MG/2 ML VIAL IV PRN (02:59)
[2019-01-23] MEDS ORDERED: ACETAMINOPHEN 500 MG TAB PO PRN (02:59)
[2019-01-23] MEDS ORDERED: ALPRAZOLAM 0.25 MG TABLET PO PRN (02:59)
[2019-01-23] MEDS: NA CHLORIDE 0.9% 1,000 ML IV SCH ×5 (04:24→22:25)
[2019-01-23 04:47] LABS: Urine Appearance CLEAR; Urine Bilirubin NEGATIVE (NEG); Urine Blood NEGATIVE (NEG); Urine Color YELLOW; Urine Glucose NEGATIVE (NEG); Urine Protein NEGATIVE (NEG); Urine Specific Gravity 1.025 (1.005-1.030); Urine Urobilinogen 0.2 mg/dL (0.2-1.0)
[2019-01-23 04:50] LABS: Urine Microscopic Reflex NO UMIC
[2019-01-23] MEDS: MORPHINE 4 MG/ML SYR IV PRN ×2 (05:21→14:51)
[2019-01-23 06:33] LABS: Magnesium 2.8 mg/dL (1.8-2.4); Phosphorus 3.7 mg/dL (2.5-4.9); Potassium 3.2 mmol/L (3.5-5.1)
--- NOTE | 2019-01-23 08:10 | P.HP ---
Certification for Inpatient Patient admitted to: Inpatient With expected LOS: >2 Midnights Patient will require the following post-hospital care: None Practitioner: I am a practitioner with admitting privileges, knowledge of patient current condition, hospital course, and medical plan of care. Services: Services provided to patient in accordance with Admission requirements found in Title 42 Section 412.3 of the Code of Federal Regulations Patient History Date of Service: 01/23/19 Reason for admission: Intractable nausea and vomiting along with diarrhea / acute kidney injury History of Present Illness: Patient is a 38-year-old gentleman with a learning disability who lives with his mother and he presents to the hospital with abdominal pain along with nausea , vomiting, and diarrhea. This has been going on for the last 3-4 days. His symptoms have gradually worsened so he came into the ER for further evaluation. In the emergency room he had lab work done as well as CT of the abdomen and pelvis. This CT revealed that he had no acute surgical abdomen, but he did have multiple nodules in the lower lobe of the lung that was captured. This may be related to metastatic disease and a more dedicated CT scan has been ordered for today. Patient's renal function is significantly worsened compared to his baseline. This is probably related to his degree of dehydration. His GFR is less than 20. his blood pressure has been labile. He will be admitted to the hospital for further evaluation. Because of his abdominal issues which have led to him developing severe dehydration with a GFR less than 20 we need to the admit him to the hospital for an inpatient stay. He is going to need more than 48 hr to recover. It could require even longer time if the CT of the chest that we have ordered reveals this to be the cause of his intractable nausea and vomiting along with abdominal pain. If this is the case in his dehydration may last much longer than expected. Patient will need a minimum of 48 hr to recover and to diagnose exactly what is going on with the patient. Allergies No Known Allergies Allergy (Verified 01/23/19 04:10) Home Medications: NK [No Home Meds] 01/23/19 - Past Medical/Surgical History Has patient received pneumonia vaccine in the past: No Diabetic: No -: obesity -: illegal drug abuse -: History of depression -: Sleep apnea noncompliant Past Surgical History: Patient denies surgical history - Family History Father Family History: Reviewed- Non-Contributory - Social History Smoking Status: Current every day smoker Alcohol use: No CD- Drugs: No Caffeine use: Yes Place of Residence: Home Review of Systems 10-point ROS is otherwise unremarkable Physical Examination - Vital Signs Temperature: 97.3 F Blood Pressure: 126/76 Pulse: 80 Respirations: 20 Pulse Ox (%): 100 - Physical Exam General: Alert, In no apparent distress, Oriented x3, Other ( Patient appears to have a learning disability; family is not at bedside to discuss his current situation.) HEENT: Atraumatic, PERRLA, Mucous membr. moist/pink, EOMI, Sclerae nonicteric Neck: Supple, 2+ carotid pulse no bruit, No LAD, Without JVD or thyroid abnormality Respiratory: Clear to auscultation bilaterally, Normal air movement Cardiovascular: Regular rate/rhythm, Normal S1 S2, No murmurs Gastrointestinal: Normal bowel sounds, No tenderness, No guarding, Distended Musculoskeletal: No clubbing, No swelling, No tenderness Integumentary: No rashes Neurological: Normal gait, Normal speech, Normal strength at 5/5 x4 extr, Normal tone, Sensation intact, Cranial nerves 3-12 intact, Normal affect Lymphatics: No axilla or inguinal lymphadenopathy - Studies Laboratory Data (last 24 hrs) 01/22/19 23:11: Creatinine 2.81 H 01/22/19 23:11: WBC 17.9 H, Hgb 15.6, Hct 47.3, Plt Count 277 01/22/19 23:11: Sodium 134 L, Potassium 3.6, BUN 60 H, Creatinine 2.73 H, Glucose 167 H, Total Bilirubin 1.2 H, AST 94 H, ALT 40, Alkaline Phosphatase 65 , Lipase 94 Assessment & Plan - Problems (Diagnosis) (1) Dehydration Current Visit: Yes Status: Acute (2) Weight loss Current Visit: Yes Status: Acute (3) Pulmonary nodules Current Visit: Yes Status: Acute (4) Metastatic cancer to lung of unknown cell type Current Visit: Yes Status: Acute (5) Obesity Onset Date: 08/26/16 Current Visit: No Status: Acute Qualifiers: Obesity type: due to excess calories Qualified Code(s): E66.01 - Morbid ( severe) obesity due to excess calories - Plan Plan: 1. IV fluids 2. Stool studies 3. GI consultation for further evaluation. Patient may benefit from a permit his screen with this can be done as an outpatient. 4. Pain control 5. Nephrology consultation with hydration and monitoring renal function. Will get a renal ultrasound as well. 6. Repeat abdominal film if pain worsens to rule out perforation 7. GI and DVT prophylaxis Discharge Plan: Home Plan to discharge in: 24 Hours - Advance Directives Does patient have a Living Will: No Does patient have a Durable POA for Healthcare: No - Code Status/Comfort Care Code Status Assessed: Yes Code Status: Full Code Critical Care: No Time Spent Managing PTS Care (In Minutes): 45
[2019-01-23] MEDS: ENOXAPARIN 40 MG/0.4 ML SQ SCH (08:51)
[2019-01-23] MEDS: PARoxetine HCl 10 MG TAB PO SCH (08:52)
[2019-01-23] MEDS ORDERED: POTASSIUM CL SA 10 MEQ TAB PO ONE (09:00)
[2019-01-23 20:43] LABS: Barbiturates NEGATIVE (NEGATIVE); Benzodiazepines NEGATIVE (NEGATIVE); Cocaine NEGATIVE (NEGATIVE); METHAMPHETAM POSITIVE (NEGATIVE); Methadone NEGATIVE (NEGATIVE); Opiates POSITIVE (NEGATIVE); Phencyclidine NEGATIVE (NEGATIVE); THC Cannibis NEGATIVE (NEGATIVE)
[2019-01-24] MEDS: NA CHLORIDE 0.9% 1,000 ML IV SCH ×2 (03:00→05:43)
--- NOTE | 2019-01-24 03:26 | CON ---
Date of Consultation: 01/23/2019 Chief Complaint: Abnormal kidney function test. History Of Present Illness: The patient came to the hospital and was found to have severe leukocytos is, sepsis, and acute kidney injury. Blood work done yesterday revealed azotemia up to BUN 60, creat inine 2.73. Over the last 24 hours, renal function somewhat improved, BUN is 49, creatinine 1.62. E lectrolytes on admission were as follows: Sodium 134, potassium 3.6, chloride 98, CO2 24, BUN 60, cr eatinine 2.73, calcium 9.9. The patient had CT scan of the abdomen and pelvis done and report is pen jayna at this time. The patient is not a good historian. He is somewhat lethargic and denies new complaints. He is a 38 -year-old man with learning disabilities, who lives with his mother, and he presented to the hospital with abdominal pain along with nausea, vomiting, and diarrhea. This has been going on for 3-[address] scan reveals that he had no acute surgical abdomen, but he did have multiple nodules in the lowe r lobe of the lung that were captured on the CT scan. This may be related to metastatic disease, and more dedicated CT scan will be ordered today. Final report is pending and is not available to me. I reviewed records from the primary team. Renal function somewhat improved over the last 24 hours, but on admission, was significantly worsened compared to baseline. The patient was started on IV fluids to treat hypovolemia. White count was e levated and the patient is undergoing workup for possible infection and sepsis. Review of Systems: The patient cannot provide review of systems. He answers a few questions. Review of Systems: Unobtainable. Past Medical History: Illegal drug abuse, history of depression, sleep apnea, noncompliance. Family History: Unobtainable. Social History: Current everyday smoker. Denies alcohol and illicit drugs. Physical Examination: Vital Signs: Blood pressure is 126/76, temperature 97.3, heart rate 80, respiratory rate 20, pulse o ximeter 100. General: The patient is alert, oriented x3, not in acute distress. Eyes: Anicteric sclerae. Neck: No hemorrhagic changes. Respiratory: Clear to auscultation bilaterally. Cardiovascular: S1, S2. No pericardial friction rub. GI: Abdomen is soft, benign. Bowel sounds present. Extremities: No clubbing. No cyanosis. Neurological: No tremor. Laboratory Data: Sodium 133, potassium 3.2, chloride 99, CO2 27, BUN 49, creatinine 1.62, magnesium 2.8, calcium 9.0, phosphorus 3.7, potassium 3.9. Urinalysis showed a WBC less than 5, RBC 9, specifi c gravity 1.025, urine nitrites negative, blood negative, total protein negative. Impression And Plan: 1.Acute kidney injury secondary to prerenal azotemia. Continue IV fluids. Urinalysis did not show active urinary sediment. CT scan is pending to obtain workup for possible nodules. I recommend to juan farr renal ultrasound to evaluate kidney size and echotexture. 2.Hypovolemia. Continue IV fluids. 3.Hypopotassemia. The patient received replacement for hypopotassemia and potassium level is improv ing. Monitor magnesium and phosphorus level. Avoid nephrotoxic medication. 4.Hypertension. Recommend to avoid TREVER inhibitor in view of acute kidney injury. Blood pressure cu rrently is in good control. ALYX/MODL Voice ID: [id number] Report ID: [id number]
[2019-01-24 05:14] LABS: BUN Blood Urea Nitrogen 23 mg/dL (7-18); Bicarbonate 31 mmol/L (21-32); Glucose Level 89 mg/dL (74-106); Potassium 4.7 mmol/L (3.5-5.1); Sodium Level 143 mmol/L (136-145)
[2019-01-24] MEDS: PARoxetine HCl 10 MG TAB PO SCH (08:51)
[2019-01-24] MEDS: ENOXAPARIN 40 MG/0.4 ML SQ SCH (08:52)
[2019-01-24] MEDS: NACHLORIDE 0.45% 1,000 ML IV SCH ×3 (10:28→23:20)
[2019-01-24 11:40] LABS: Absolute Lymphocytes (CBC) 1.9 K/uL (0.7-4.9); Absolute Monocytes 0.9 K/uL (0.1-1.3); Absolute Neutrophil 5.9 K/uL (1.8-8.0); Basophils % 0.5 % (0-1.3); Lymphocytes % 21.9 % (15.3-44.8); MPV 10.5 fL (7.6-11.3); RBC Red Blood Cell Count 4.34 M/uL (4.33-5.43)
--- NOTE | 2019-01-24 13:40 | P.PN ---
Subjective Date of Service: 01/24/19 Chief Complaint: Intractable nausea and vomiting along with diarrhea / acute kidney injury Subjective: Improving Review of Systems 10-point ROS is otherwise unremarkable Physical Examination - Vital Signs Temperature: 97.0 F Blood Pressure: 122/72 Pulse: 72 Respirations: 16 Pulse Ox (%): 99 - Physical Exam General: Alert, In no apparent distress, Oriented x3 HEENT: Atraumatic, PERRLA, EOMI Neck: Supple, JVD not distended Respiratory: Clear to auscultation bilaterally, Normal air movement Cardiovascular: Regular rate/rhythm, Normal S1 S2 Gastrointestinal: Normal bowel sounds, No tenderness Musculoskeletal: No tenderness Integumentary: No rashes Neurological: Normal speech, Normal tone, Normal affect Lymphatics: No axilla or inguinal lymphadenopathy Assessment And Plan - Current Problems (Diagnosis) (1) Nausea & vomiting Current Visit: Yes Status: Acute (2) Pulmonary nodules Current Visit: Yes Status: Acute (3) Metastatic cancer to lung of unknown cell type Current Visit: Yes Status: Acute (4) Obesity Onset Date: 08/26/16 Current Visit: No Status: Acute Qualifiers: Obesity type: due to excess calories Qualified Code(s): E66.01 - Morbid ( severe) obesity due to excess calories (5) GERD (gastroesophageal reflux disease) Current Visit: Yes Status: Acute (6) Chronic back pain Current Visit: Yes Status: Acute (7) Drug abuse Current Visit: Yes Status: Acute (8) Nicotine dependence Current Visit: Yes Status: Acute Qualifiers: Nicotine product type: cigarettes (9) History of incarceration Current Visit: Yes Status: Acute - Plan 1. Continue IV fluids 2. Tolerating diet. Nausea and vomiting improved. Continue Protonix 3. GI consultation for further evaluation as an outpatient. 4. Pain control 5. ISAAC resolved. Appreciate Nephrology recommendations. 6. CT chest with multiple pulmonary nodules and a high risk patient. Risk factors include history of drug abuse, current nicotine dependence for 10+ years , recent history of incarceration. Pulmonology consulted, waiting recommendations. 7. GI and DVT prophylaxis
[2019-01-24 14:26] LABS: Albumin 3.2 g/dL (3.4-5.0); Bilirubin Direct 0.2 mg/dL (0-0.2); Bilirubin Total 0.7 mg/dL (0.2-1.0); Protein, Total 6.5 g/dL (6.4-8.2)
--- NOTE | 2019-01-25 01:40 | PN ---
Date of Progress Note: 01/24/2019 Chief Complaint: Acute kidney injury. History Of Present Illness: Acute kidney injury, moderately severe. Renal function has improved lalito ewhat over last 48 hours. The patient responded to IV fluids. On arrival to the hospital, BUN was 6 0 and creatinine was 2.73. CT scan did not show acute abdomen and workup is pending for multiple nod ules as visualized on the CT scan. Review of Systems: Denies complaints. Physical Examination: Lungs: Few crackles at bases. Heart: S1-S2. Abdomen: Soft, benign. Extremities: No edema. Laboratory Data: Creatinine 1.62, BUN 49. Impression And Plan: 1.Acute kidney injury secondary to prerenal azotemia. Continue IV fluids. Adjust fluids according to electrolytes. Monitor for any evidence of nephritis. Renal ultrasound was ordered to evaluate ki dney size and echotexture to check for any evidence of chronic kidney disease. Monitor proteinuria. 2.Hypovolemia. Continue IV fluids. 3.Hypopotassemia. Replacement was ordered to treat hypopotassemia. 4.Hypertension. Monitor blood pressure. Currently, blood pressure is well controlled. ALYX/TARIK Voice ID: [id number] Report ID: [id number]
[2019-01-25 06:19] LABS: BUN Blood Urea Nitrogen 10 mg/dL (7-18); Bicarbonate 30 mmol/L (21-32); Glucose Level 82 mg/dL (74-106); Potassium 4.4 mmol/L (3.5-5.1); Sodium Level 142 mmol/L (136-145)
[2019-01-25] MEDS ORDERED: PANTOPRAZOLE 40MG TABLET PO SCH (06:30)
--- NOTE | 2019-01-25 07:18 | RAD REPORT ---
EXAM DESCRIPTION: US - Renal Ultrasound-Complete - 01/24/2019 11:14 pm CLINICAL HISTORY: Acute kidney injury COMPARISON: None. FINDINGS: The right kidney measures 11.7 x 5.9 x 5.8 cm. The left kidney measures 10.9 x 6.1 x 5.1 cm. Renal cortical thickness and echogenicity are normal. No hydronephrosis or suspicious renal mass. No bladder wall thickening or mass. No intraluminal stone or mass. IMPRESSION: No hydronephrosis or suspicious renal mass. No other significant findings.
[2019-01-25] MEDS: PARoxetine HCl 10 MG TAB PO SCH (09:16)
[2019-01-25] MEDS: ENOXAPARIN 40 MG/0.4 ML SQ SCH (09:17)
[2019-01-25] MEDS: NACHLORIDE 0.45% 1,000 ML IV SCH (09:18)
--- NOTE | 2019-01-25 12:06 | RAD REPORT ---
EXAM DESCRIPTION: CT - Abdomen Pelvis Wo Contrast - 01/23/2019 4:30 am COMPARISON: None CLINICAL HISTORY: Abdominal pain TECHNIQUE: Multiple helical axial images were obtained through the abdomen and pelvis without intrav enous contrast. Sagittal and coronal reformatted images are reviewed as well. All CT scans at this facility use dose modulation, iterative reconstruction, and/or weight-based dosi ng when appropriate to reduce radiation dose to as low as reasonably achievable. FINDINGS: Lung bases: There are multiple randomly distributed, noncalcified nodules in the visualize d lung bases measuring up to 1 cm. Liver: Homogenous attenuation is demonstrated. Gallbladder/biliary: Gallbladder appears unremarkable. No calcified gallstones. No evidence of biliar y ductal dilatation. Pancreas: Unremarkable. Spleen: Unremarkable. Adrenals: Unremarkable. Kidneys and ureters: No evidence of renal or ureteral stones. No hydronephrosis. Bladder: Unremarkable. Pelvic organs: Unremarkable. Bowel: No evidence of bowel obstruction. No bowel wall thickening. Appendix appears unremarkable. Peritoneum: No free air. No significant free fluid. Lymph nodes: Unremarkable. Vasculature: Iliac artery atherosclerosis is noted. Soft tissues: A small fat-containing umbilical hernia is present. Bones: Degenerative changes of the lumbar spine are present. IMPRESSION: 1. Multiple pulmonary nodules in the lung bases which can be seen with metastatic diseas e. Consider follow-up dedicated CT of the chest. 2. No obvious acute process within the abdomen or pelvis. Electronically signed by: Charli Mckeon MD 01/23/2019 1:35 AM CDT Due to temporary technical issues with the PACS/Fluency reporting system, reports are being signed by the in house radiologist as a courtesy to ensure prompt reporting. The interpreting radiologist is f ully responsible for the content of the report.
--- NOTE | 2019-01-25 12:11 | RAD REPORT ---
EXAM DESCRIPTION: CT - Thorax Moon Mo - 01/23/2019 4:28 am CLINICAL HISTORY: The patient is 38 years old and is Male; pneumonia/nodules TECHNIQUE: Axial computed tomography images of the chest without intravenous contrast. Sagittal an d coronal reformatted images were created and reviewed. This CT exam was performed using one or mor e of the following dose reduction techniques: automated exposure control, adjustment of the mA and/ or kV according to patient size, and/or use of iterative reconstruction technique. COMPARISON: No relevant prior studies available. FINDINGS: LUNGS: Multiple bilateral pulmonary nodules are present throughout the lungs, the larges t within the lingula measures approximately 1.2 cm. The lungs are otherwise clear. There is no lobar consolidation. PLEURAL SPACE: Unremarkable. No pneumothorax. No significant effusion. HEART: No cardiomegaly. No pericardial effusion. BONES/JOINTS: Mild multilevel intervertebral disc space narrowing and anterior osteophyte format ion is present. SOFT TISSUES: The soft tissues are normal. VASCULATURE: Unremarkable. No thoracic aortic aneurysm. LYMPH NODES: Unremarkable. No enlarged lymph nodes. IMPRESSION: Innumerable pulmonary nodules throughout the lungs. Findings are most concerning for met astatic disease. No evidence to suggest primary on this noncontrasted CT of the chest however. For low-risk patients recommend follow-up chest CT at 3-6 months. If unchanged consider an addition al follow-up CT at 18-24 months. For high-risk patients (smoking history or other known risk factor s) initial follow-up chest CT at 3-6 months and if unchanged, 18-24 months. Electronically signed by: Margoth Cortes MD 01/23/2019 4:25 AM CDT Due to temporary technical issues with the PACS/Fluency reporting system, reports are being signed by the in house radiologist as a courtesy to ensure prompt reporting. The interpreting radiologist is f rosaly responsible for the content of the report.
--- NOTE | 2019-01-25 15:32 | P.DS ---
Admission Date: 01/23/19 Discharge Date: 01/25/19 Disposition: ROUTINE DISCHARGE Discharge Condition: FAIR Reason for Admission: Intractable nausea and vomiting along with diarrhea / acute kidney injury Consultations: Dr. Ruiz, nephrology Dr. Black, pulmonology - Problems (1) Nausea & vomiting Current Visit: Yes Status: Acute (2) Pulmonary nodules Current Visit: Yes Status: Acute (3) Metastatic cancer to lung of unknown cell type Current Visit: Yes Status: Acute (4) Obesity Onset Date: 08/26/16 Current Visit: No Status: Acute Qualifiers: Obesity type: due to excess calories Qualified Code(s): E66.01 - Morbid ( severe) obesity due to excess calories (5) GERD (gastroesophageal reflux disease) Current Visit: Yes Status: Acute (6) Chronic back pain Current Visit: Yes Status: Acute (7) Drug abuse Current Visit: Yes Status: Acute (8) Nicotine dependence Current Visit: Yes Status: Acute Qualifiers: Nicotine product type: cigarettes (9) History of incarceration Current Visit: Yes Status: Acute Brief History of Present Illness: Patient is a 38-year-old gentleman with a learning disability who lives with his mother and he presents to the hospital with abdominal pain along with nausea , vomiting, and diarrhea. This has been going on for the last 3-4 days. His symptoms have gradually worsened so he came into the ER for further evaluation. In the emergency room he had lab work done as well as CT of the abdomen and pelvis. This CT revealed that he had no acute surgical abdomen, but he did have multiple nodules in the lower lobe of the lung that was captured. This may be related to metastatic disease and a more dedicated CT scan has been ordered for today. Patient's renal function is significantly worsened compared to his baseline. This is probably related to his degree of dehydration. His GFR is less than 20. his blood pressure has been labile. He will be admitted to the hospital for further evaluation. Hospital Course: Because of his abdominal issues which have led to him developing severe dehydration with a GFR less than 20 he was admitted to the hospital for an inpatient stay. He was started on IV fluids. His acute kidney injury and dehydration resolved. His lab work normalized. He was slowly started on a clear liquid diet, advance as tolerated. His GI symptoms resolved. A CT scan of his abdomen was done, which was positive for pulmonary nodules noted on the pulmonary bases. This was suspicious for metastasis from elsewhere. A CT scan of the chest was done, consistent with multiple pulmonary nodules, suspicious for metastasis. Pulmonology was consulted. Case was extensively discussed with sql architect and radiologist. Per Radiology, we are unable to do a fine- needle biopsy here as the nodules are too small, we do not have any way to reach them. This was discussed with sql architect. Procedures Analyst stated that he would see patient in his clinic for further outpatient workup, including biopsy. This was discussed with the patient as well as is mother. All questions were answered, they verbalized understanding. Prior to discharge, he was alert and oriented, mentation montes back to baseline. He was tolerating a soft diet. His symptoms have resolved. He was instructed and recommended to follow up with pulmonology in the next week for further evaluation of the pulmonary nodules as he does have risk factors including current nicotine dependence for 10+ years, recent history of incarceration and history of drug abuse. He verbalized understanding. This is also reiterated to his mother, she also verbalized understanding. He was then discharged home in a safe and stable manner. Vital Signs/Physical Exam: Temp Pulse Resp BP Pulse Ox 97.5 F 60 18 105/55 L 97 01/25/19 12:00 01/25/19 12:00 01/25/19 12:00 01/25/19 12:00 01/25/19 12:00 General: Alert, In no apparent distress, Oriented x3 HEENT: Atraumatic, PERRLA, EOMI Neck: Supple, JVD not distended Respiratory: Clear to auscultation bilaterally, Normal air movement Cardiovascular: Regular rate/rhythm, Normal S1 S2 Gastrointestinal: Normal bowel sounds, No tenderness Musculoskeletal: No tenderness Integumentary: No rashes Neurological: Normal speech, Normal tone, Normal affect Lymphatics: No axilla or inguinal lymphadenopathy Laboratory Data at Discharge: WBC 8.9 K/uL (4.3-10.9) D 01/24/19 11:27 Hgb 13.1 g/dL (13.6-17.9) L D 01/24/19 11:27 Hct 39.0 % (39.6-49.0) L D 01/24/19 11:27 Plt Count 222 K/uL (152-406) 01/24/19 11:27 Sodium 142 mmol/L (136-145) 01/25/19 05:16 Potassium 4.4 mmol/L (3.5-5.1) 01/25/19 05:16 BUN 10 mg/dL (7-18) 01/25/19 05:16 Creatinine 0.72 mg/dL (0.55-1.3) 01/25/19 05:16 Glucose 82 mg/dL (74-106) 01/25/19 05:16 Phosphorus 3.7 mg/dL (2.5-4.9) 01/23/19 06:08 Magnesium 2.8 mg/dL (1.8-2.4) H 01/23/19 06:08 Total Bilirubin 0.7 mg/dL (0.2-1.0) 01/24/19 14:00 AST 76 U/L (15-37) H 01/24/19 14:00 ALT 42 U/L (12-78) 01/24/19 14:00 Alkaline Phosphatase 43 U/L (45-117) L 01/24/19 14:00 Lipase 94 U/L (73-393) 01/22/19 23:11 Home Medications: Pantoprazole [Protonix Tab*] 40 mg PO DAILYAC #30 tab 01/25/19 New Medications: Pantoprazole [Protonix Tab*] 40 mg PO DAILYAC #30 tab Patient Discharge Instructions: Please follow up with pulmonology in 1 week. Information has been provided to you. Please follow up with the primary care physician in 2-3 days. Please return to the emergency room for worsening symptoms. Diet: Soft Activity: Ad angella Time spent managing pt's care (in minutes): 55
[2019-01-27 03:19] LABS: HBsAG Nonreactive (Nonreactive)
[2019-01-27 10:32] LABS: HIV AG/AB 4TH GEN Non-reactive (Non-reactive)
== END 2019-01-25 16:20 | disposition home or self-care (01) | DRG 683 ==
LOC: ER 22:33 → ERHOLD 01-23 02:59 → 2ND 01-23 03:39
PROVIDERS: ADMIT Hospitalist; ATTEND Hospitalist
DX: N17.9 Acute kidney failure, unspecified (principal); C78.00 Secondary malignant neoplasm of unspecified lung; E86.0 Dehydration; R11.2 Nausea with vomiting, unspecified; R91.8 Other nonspecific abnormal finding of lung field; E66.9 Obesity, unspecified; Z68.34 Body mass index [BMI] 34.0-34.9, adult; K21.9 Gastro-esophageal reflux disease without esophagitis; R79.89 Other specified abnormal findings of blood chemistry; E86.1 Hypovolemia; E87.6 Hypokalemia; I10 Essential (primary) hypertension; F17.210 Nicotine dependence, cigarettes, uncomplicated; F19.11 Other psychoactive substance abuse, in remission; M54.9 Dorsalgia, unspecified; F81.9 Developmental disorder of scholastic skills, unspecified; C80.1 Malignant (primary) neoplasm, unspecified
CPT/HCPCS: 36415; 71250; 74176; 76770; 80048; 80076; 80307; 81003; 81015; 83690; 83735; 84100; 84132; 85025; 86704; 86803; 87086; 87088; 87340; 87389; 96361; 96374; 96375; 99285; C9113; J1650; J2405; J7030

== ENCOUNTER 2019-09-07 01:54 | Emergency (ER) | payer SELFPAY ==
--- OUTSIDE RECORDS SUMMARY | 2019-09-07 01:57 | XMS REPORT ---
:1980 [facility] [address] [place] [address] [address] [place] [address] Care Team Providers Name Role Phone Unavailable Unavailable Unavailable Problems This patient has no known problems. Allergies, Adverse Reactions, Alerts This patient has no known allergies or adverse reactions. Medications This patient has no known medications.
[2019-09-07] MEDS ORDERED: NA CHLORIDE 0.9% 1,000 ML ONE (02:26)
[2019-09-07] MEDS ORDERED: ASPIRIN 81 MG CHEWABLE TABLET ONE (02:26)
[2019-09-07 02:37] LABS: Absolute Lymphocytes (CBC) 2.5 K/uL (0.7-4.9); Basophils % 0.8 % (0-1.3); Hematocrit 40.4 % (39.6-49.0); Lymphocytes % 25.9 % (15.3-44.8); MPV 9.8 fL (7.6-11.3)
[2019-09-07 02:38] LABS: Protime INR 1.04
[2019-09-07 02:41] LABS: Urine Glucose NEGATIVE (NEG); Urine Specific Gravity 1.025 (1.005-1.030)
[2019-09-07 02:44] LABS: Urine Blood NEGATIVE (NEG); Urine Protein NEGATIVE (NEG)
[2019-09-07 03:08] LABS: Barbiturates NEGATIVE (NEGATIVE); Benzodiazepines NEGATIVE (NEGATIVE); Cocaine NEGATIVE (NEGATIVE); METHAMPHETAM POSITIVE (NEGATIVE); Methadone NEGATIVE (NEGATIVE); Opiates NEGATIVE (NEGATIVE); Phencyclidine NEGATIVE (NEGATIVE); THC Cannibis NEGATIVE (NEGATIVE)
[2019-09-07 03:14] LABS: ALT/SGPT 22 U/L (12-78); AST/SGOT 16 U/L (15-37); Albumin 3.7 g/dL (3.4-5.0); Alkaline Phosphatase 59 U/L (45-117); BUN Blood Urea Nitrogen 15 mg/dL (7-18); Bicarbonate 28 mmol/L (21-32); Bilirubin Direct 0.1 mg/dL (0-0.2); Bilirubin Total 0.5 mg/dL (0.2-1.0); Glucose Level 109 mg/dL (74-106); Lipase 161 U/L (73-393); Magnesium 2.3 mg/dL (1.8-2.4); NT PRO-BNP 157 pg/mL (<125); Potassium 3.7 mmol/L (3.5-5.1); Protein, Total 7.4 g/dL (6.4-8.2); Sodium Level 143 mmol/L (136-145); Troponin (Emerg Dept Use Only) < 0.02 ng/mL (0.0-0.045)
--- NOTE | 2019-09-07 03:45 | ER ---
Nurse's Notes [facility] Name: Asher Gomez Age: 39 yrs Sex: Male : 1980 Arrival Date: 09/07/2019 Time: 01:56 Bed 15 Private MD: Diagnosis: Other chest pain-non cardiac;Essential (primary) hypertension;Bipolar disorder;Adverse effect of amphetamines Presentation: 09/07 02:07 Presenting complaint: Pt is in [employer] Enforcement custody on their way to book him when Pt wh C/O chest pain. Transition of care: patient was not received from another setting of care. Onset of symptoms was September 07, 2019. Risk Assessment: Do you want to hurt yourself or someone else? Patient reports no desire to harm self or others. Initial Sepsis Screen: Does the patient meet any 2 criteria? No. Patient's initial sepsis screen is negative. Does the patient have a suspected source of infection? No. Patient's initial sepsis screen is negative. Care prior to arrival: None. 02:07 Method Of Arrival: [employer] Enforcement: Elio Casillas [facility] 02:07 Acuity: HERMELINDO 3 wh Historical: - Allergies: 02:12 No Known Allergies; wh - Home Meds: 02:12 Unable to obtain [Active]; wh - PMHx: 02:12 Asthma; Bipolar disorder; Diabetes; Hypertension; Sleep Apnea; wh - Immunization history:: Adult Immunizations not up to date. - Social history:: Smoking status: Patient reports use of chewing tobacco. - Family history:: not pertinent. - Ebola Screening: : Patient negative for fever greater than or equal to 101.5 degrees Fahrenheit, and additional compatible Ebola Virus Disease symptoms Patient denies exposure to infectious person. Screenin:12 Abuse screen: Denies threats or abuse. Denies injuries from another. Nutritional wh screening: No deficits noted. Tuberculosis screening: No symptoms or risk factors identified. Fall Risk None identified. Assessment: 02:15 General: Appears in no apparent distress. Behavior is drowsy. Pain: Complains of pain wh in chest Pain does not radiate. Pain currently is 4 out of 10 on a pain scale. Pain began 30 min ago. Neuro: Level of Consciousness is awake, alert, obeys commands, Oriented to person, place, time, situation, Appropriate for age. Cardiovascular: Reports chest pain, Heart tones S1 S2 Rhythm is regular. Respiratory: Airway is patent Respiratory effort is even, unlabored, Respiratory pattern is regular, symmetrical, Breath sounds are clear bilaterally. GI: Abdomen is round non-distended. : No signs and/or symptoms were reported regarding the genitourinary system. EENT: No signs and/or symptoms were reported regarding the EENT system. Derm: Skin is intact, is healthy with good turgor, Skin is pink, warm \T\ dry. normal. Musculoskeletal: Circulation, motion, and sensation intact. 02:59 Reassessment: Patient appears in no apparent distress at this time. No changes from previously documented assessment. Patient and/or family updated on plan of care and expected duration. Pain level reassessed. Patient is alert, oriented x 3, equal unlabored respirations, skin warm/dry/pink. 04:04 Reassessment: Patient appears in no apparent distress at this time. No changes from previously documented assessment. Patient and/or family updated on plan of care and expected duration. Pain level reassessed. Patient is alert, oriented x 3, equal unlabored respirations, skin warm/dry/pink. Patient denies pain at this time. Vital Signs: 02:19 Pulse 90; Resp 18; Temp 98.4; Weight 81.65 kg; Height 5 ft. 6 in. (167.64 cm); 02:27 BP 142 / 108; wh 02:59 BP 137 / 93; Pulse 87; Resp 18; Pulse Ox 100% on R/A; wh 04:00 BP 128 / 75; Pulse 85; Resp 18; Pulse Ox 100% ; 02:19 Body Mass Index 29.05 (81.65 kg, 167.64 cm) ED Course: 01:56 Patient arrived in ED. es 02:03 Sebastian Roberto MD is Attending Physician. trey 02:05 Rosita Muñiz is Primary Nurse. 02:10 XRAY Chest (1 view) In Process Unspecified. EDMS 02:10 Triage completed. wh 02:18 Arm band placed on right wrist. wh 02:19 Patient has correct armband on for positive identification. Bed in low position. Call light in reach. Side rails up X 1. quality assurance monitor final on. Pulse ox on. NIBP on. 02:19 Patient maintains SpO2 saturation greater than 95% on room air. wh 02:27 Urine collected: clean catch specimen, cloudy, daljit colored. Inserted saline lock: 20 mt gauge in left antecubital area, using aseptic technique. Blood collected. 02:29 EKG done, by ED staff, reviewed by Sebastian Roberto MD. md 03:44 Saqib Boyle MD is Referral Physician. [facility] 04:06 No provider procedures requiring assistance completed. IV discontinued, intact, bleeding controlled, No redness/swelling at site. Administered Medications: 02:26 Drug: NS 0.9% 1000 ml Route: IV; Rate: 1 bolus; Site: left antecubital; hb 04:06 Follow up: Response: No adverse reaction; IV Status: Completed infusion 02:26 Drug: Aspirin Chewable Tablet 324 mg Route: PO; hb 04:06 Follow up: Response: No adverse reaction Outcome: 03:44 Discharge ordered by . [facility] 04:06 Discharged to Law Enforcement 04:06 Condition: stable 04:06 Discharge instructions given to patient, police, Instructed on discharge instructions, follow up and referral plans. POC Demonstrated understanding of instructions, follow-up care, POC 04:07 Patient left the ED. Signatures: Dispatcher [employer] EDSebastian Jensen MD MD cha Salyer, Reanna Waterman, THERESA RN martín Aguilar, Rosita Henry mt
--- NOTE | 2019-09-07 03:45 | EDPHYS ---
Physician Documentation [facility] Name: Asher Gomez Age: 39 yrs Sex: Male : 1980 Arrival Date: 09/07/2019 Time: 01:56 Bed 15 Private MD: ED Physician Sebastian Roberto HPI: 09/07 02:05 This 39 yrs old Male presents to ER via Unassigned with complaints of Chest trey Pain. 02:05 The patient or guardian reports chest pain that is located primarily in the anterior trey chest wall, bilaterally. Onset: 2 hour(s) ago. The pain does not radiate. Associated signs and symptoms: The patient has no apparent associated signs or symptoms. The chest pain is described as aching. Modifying factors: The symptoms are alleviated by nothing. the symptoms are aggravated by nothing. Severity of pain: At its worst the pain was mild in the emergency department the pain is unchanged. Historical: - Allergies: 02:12 No Known Allergies; - Home Meds: 02:12 Unable to obtain [Active]; - PMHx: 02:12 Asthma; Bipolar disorder; Diabetes; Hypertension; Sleep Apnea; wh - Immunization history:: Adult Immunizations not up to date. - Social history:: Smoking status: Patient reports use of chewing tobacco. - Family history:: not pertinent. - Ebola Screening: : Patient negative for fever greater than or equal to 101.5 degrees Fahrenheit, and additional compatible Ebola Virus Disease symptoms Patient denies exposure to infectious person. ROS: 02:05 Constitutional: Negative for fever, chills, and weight loss, Eyes: Negative for injury, trey pain, redness, and discharge, ENT: Negative for injury, pain, and discharge, Neck: Negative for injury, pain, and swelling, Respiratory: Negative for shortness of breath, cough, wheezing, and pleuritic chest pain, Abdomen/GI: Negative for abdominal pain, nausea, vomiting, diarrhea, and constipation, Back: Negative for injury and pain, : Negative for injury, bleeding, discharge, and swelling, MS/Extremity: Negative for injury and deformity, Skin: Negative for injury, rash, and discoloration, Neuro: Negative for headache, weakness, numbness, tingling, and seizure, Psych: Negative for depression, anxiety, suicide ideation, homicidal ideation, and hallucinations, Allergy/Immunology: Negative for hives, rash, and allergies, Endocrine: Negative for neck swelling, polydipsia, polyuria, polyphagia, and marked weight changes, Hematologic/Lymphatic: Negative for swollen nodes, abnormal bleeding, and unusual bruising. 02:05 Cardiovascular: Positive for chest pain. Exam: 02:05 Constitutional: This is a well developed, well nourished patient who is awake, alert, trey and in no acute distress. Head/Face: Normocephalic, atraumatic. Eyes: Pupils equal round and reactive to light, extra-ocular motions intact. Lids and lashes normal. Conjunctiva and sclera are non-icteric and not injected. Cornea within normal limits. Periorbital areas with no swelling, redness, or edema. ENT: Nares patent. No nasal discharge, no septal abnormalities noted. Tympanic membranes are normal and external auditory canals are clear. Oropharynx with no redness, swelling, or masses, exudates, or evidence of obstruction, uvula midline. Mucous membranes moist. Neck: Trachea midline, no thyromegaly or masses palpated, and no cervical lymphadenopathy. Supple, full range of motion without nuchal rigidity, or vertebral point tenderness. No Meningismus. Chest/axilla: Normal chest wall appearance and motion. Nontender with no deformity. No lesions are appreciated. Cardiovascular: Regular rate and rhythm with a normal S1 and S2. No gallops, murmurs, or rubs. Normal PMI, no JVD. No pulse deficits. Respiratory: Lungs have equal breath sounds bilaterally, clear to auscultation and percussion. No rales, rhonchi or wheezes noted. No increased work of breathing, no retractions or nasal flaring. Abdomen/GI: Soft, non-tender, with normal bowel sounds. No distension or tympany. No guarding or rebound. No evidence of tenderness throughout. Back: No spinal tenderness. No costovertebral tenderness. Full range of motion. Male : Normal genitalia with no discharge or lesions. Skin: Warm, dry with normal turgor. Normal color with no rashes, no lesions, and no evidence of cellulitis. MS/ Extremity: Pulses equal, no cyanosis. Neurovascular intact. Full, normal range of motion. Neuro: Awake and alert, GCS 15, oriented to person, place, time, and situation. Cranial nerves II-XII grossly intact. Motor strength 5/5 in all extremities. Sensory grossly intact. Cerebellar exam normal. Normal gait. Psych: Awake, alert, with orientation to person, place and time. Behavior, mood, and affect are within normal limits. 02:05 Musculoskeletal/extremity: DVT Exam: No signs of deep vein thrombosis. no pain, no swelling, no tenderness, negative Homans' sign noted on exam, no appreciated bluish discoloration, no erythema, no increased warmth. Vital Signs: 02:19 Pulse 90; Resp 18; Temp 98.4; Weight 81.65 kg; Height 5 ft. 6 in. (167.64 cm); 02:27 BP 142 / 108; 02:59 BP 137 / 93; Pulse 87; Resp 18; Pulse Ox 100% on R/A; 04:00 BP 128 / 75; Pulse 85; Resp 18; Pulse Ox 100% ; 02:19 Body Mass Index 29.05 (81.65 kg, 167.64 cm) MDM: 02:03 Patient medically screened. [facility] 02:09 Data reviewed: vital signs, nurses notes, lab test result(s), EKG, radiologic studies, trey plain films. 09/07 02:04 Order name: Basic Metabolic Panel; Complete Time: 03:44 [facility] 09/07 02:04 Order name: CBC with Diff; Complete Time: 02:45 [facility] 09/07 02:04 Order name: LFT's; Complete Time: 03:44 [facility] 09/07 02:04 Order name: Magnesium; Complete Time: 03:44 [facility] 09/07 02:04 Order name: NT PRO-BNP; Complete Time: 03:44 [facility] 09/07 02:04 Order name: PT-INR; Complete Time: 02:45 [facility] 09/07 02:04 Order name: Troponin (emerg Dept Use Only); Complete Time: 03:44 [facility] 09/07 02:04 Order name: Acetaminophen; Complete Time: 03:44 [facility] 09/07 02:04 Order name: ETOH Level; Complete Time: 02:45 [facility] 09/07 02:04 Order name: Ptt, Activated; Complete Time: 02:45 [facility] 09/07 02:04 Order name: Salicylate; Complete Time: 03:15 [facility] 09/07 02:04 Order name: Urine Drug Screen; Complete Time: 03:15 [facility] 09/07 02:29 Order name: Urine Dipstick--Ancillary (enter results); Complete Time: 02:45 mw2 09/07 02:04 Order name: XRAY Chest (1 view) [facility] 09/07 02:04 Order name: EKG; Complete Time: 02:05 [facility] 09/07 02:04 Order name: Cardiac monitoring; Complete Time: 02:22 [facility] 09/07 02:04 Order name: EKG - Nurse/Tech; Complete Time: 02:22 [facility] 09/07 02:04 Order name: IV Saline Lock; Complete Time: 02:22 [facility] 09/07 02:04 Order name: Labs collected and sent; Complete Time: 02: [facility] 09/07 02:04 Order name: O2 Per Protocol; Complete Time: 02: [facility] 09/07 02:04 Order name: O2 Sat Monitoring; Complete Time: 02: [facility] 09/07 02:04 Order name: Urine Dipstick-Ancillary (obtain specimen); Complete Time: 02: [facility] 09/07 03:08 Order name: Lipase; Complete Time: 03:44 EDMS Administered Medications: 02:26 Drug: NS 0.9% 1000 ml Route: IV; Rate: 1 bolus; Site: left antecubital; hb 04:06 Follow up: Response: No adverse reaction; IV Status: Completed infusion 02:26 Drug: Aspirin Chewable Tablet 324 mg Route: PO; hb 04:06 Follow up: Response: No adverse reaction Disposition: 09/07/19 03:44 Discharged to Home. Impression: Other chest pain - non cardiac, Essential (primary) hypertension, Bipolar disorder, Adverse effect of amphetamines. - Condition is Stable. - Discharge Instructions: Stimulant Use Disorder-Amphetamines, Nonspecific Chest Pain, Hypertension, Nonspecific Chest Pain, [id number], Hypertension, Tcss-es-[id number], Stimulant Use Disorder-Methamphetamines, Aspirin and Your Heart. - Medication Reconciliation Form, Thank You Letter, Antibiotic Education, Prescription Opioid Use form. - Follow up: Private Physician; When: 2 - 3 days; Reason: Recheck today's complaints, Continuance of care, Re-evaluation by your physician. Follow up: Saqib Boyle; When: 2 - 3 days; Reason: Recheck today's complaints, Continuance of care, Re-evaluation by your physician. - Problem is new. - Symptoms have improved. Signatures: Dispatcher [employer] [facility] Sebastian Roberto MD MD cha Baxter, Heather, RN RN Rosita Sanchez Corrections: (The following items were deleted from the chart) 03:07 02:45 LIPASE+C.LAB.BRZ ordered. [facility] 03:45 03:44 09/07/2019 03:44 Discharged to Home. Impression: Other chest pain - non cardiac; trey Essential (primary) hypertension. Condition is Stable. Discharge Instructions: Nonspecific Chest Pain, Nonspecific Chest Pain, [id number], Aspirin and Your Heart, Hypertension, Hypertension, [id number]-vs-[id number]. Forms are Medication Reconciliation Form, Thank You Letter, Antibiotic Education, Prescription Opioid Use. Follow up: Private Physician; When: 2 - 3 days; Reason: Recheck today's complaints, Continuance of care, Re-evaluation by your physician. Follow up: Saqib Boyle; When: 2 - 3 days; Reason: Recheck today's complaints, Continuance of care, Re-evaluation by your physician. Problem is new. Symptoms have improved. [facility] 04:07 03:45 09/07/2019 03:44 Discharged to Home. Impression: Other chest pain - non cardiac; Essential (primary) hypertension; Bipolar disorder; Adverse effect of amphetamines. Condition is Stable. Discharge Instructions: Nonspecific Chest Pain, Nonspecific Chest Pain, [id number], Aspirin and Your Heart, Hypertension, Hypertension, Fwjb-zy-[id number]. Forms are Medication Reconciliation Form, Thank You Letter, Antibiotic Education, Prescription Opioid Use. Follow up: Private Physician; When: 2 - 3 days; Reason: Recheck today's complaints, Continuance of care, Re-evaluation by your physician. Follow up: Saqib Boyle; When: 2 - 3 days; Reason: Recheck today's complaints, Continuance of care, Re-evaluation by your physician. Problem is new. Symptoms have improved. rtey
--- NOTE | 2019-09-07 08:00 | RAD REPORT ---
EXAM DESCRIPTION: [place] Single View09/07/2019 2:10 am CLINICAL HISTORY: Chest pain COMPARISON: 2016 FINDINGS: The lungs appear clear of acute infiltrate. The heart is normal size IMPRESSION: No acute abnormalities displayed
[2019-09-07 10:39] VITALS: BP 128/75; O2SAT 100
[2019-09-07 10:50] VITALS: TEMP 98.4
--- NOTE | 2019-09-07 11:25 | EKG ---
Test Date: 2019-09-07 Test Time: 02:18:44 [employer]: [employer] MEASUREMENT RESULTS: Intervals: Rate: 83 MO: 156 QRSD: 92 QT: 378 QTc: 444 [place]: P: 59 MO: 156 QRS: -49 T: 67 INTERPRETIVE STATEMENTS: Normal sinus rhythm with sinus arrhythmia Left anterior fascicular block Abnormal ECG Compared to ECG 08/25/2016 05:19:28 Left anterior fascicular block now present Electronically Signed On 09-07-19 11:23:50 [employer] by Saqib Boyle
== END 2019-09-07 04:07 | disposition home or self-care (01) ==
LOC: ER 01:54
DX: R07.89 Other chest pain (principal); T43.625A Adverse effect of amphetamines, initial encounter; I10 Essential (primary) hypertension; F31.9 Bipolar disorder, unspecified
CPT/HCPCS: 36415; 71045; 80048; 80076; 80307; 80320; 80329; 81003; 83690; 83735; 83880; 84484; 85025; 85610; 85730; 93005; 96360; 96361; 99285; J7030

== ENCOUNTER 2020-07-28 19:46 | Emergency (ER) | payer OTHER, SELFPAY ==
--- OUTSIDE RECORDS SUMMARY | 2020-07-28 19:48 | XMS REPORT | Continuity of Care Document ---
:1980 Author Organization [facility] t Address [address] [place] [address] Dr. Mcfadden [address] [place] [id number] Care Team Providers Name Role Phone Unavailable Unavailable Unavailable Problems This patient has no known problems. Allergies, Adverse Reactions, Alerts This patient has no known allergies or adverse reactions. Medications This patient has no known medications. Procedures This patient has no known procedures. Results This patient has no known results.
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
[2020-07-28] MEDS ORDERED: KETOROLAC 30 MG/ML INJ ONE (22:09)
[2020-07-28] MEDS ORDERED: ACETAMINOPHEN 500 MG TAB ONE (22:09)
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
--- NOTE | 2020-07-29 09:21 | RAD REPORT ---
EXAM DESCRIPTION: RAD - Foot Left 3 View - 07/28/2020 10:10 pm CLINICAL HISTORY: Left Foot pain FINDINGS: No fracture or dislocation is seen.
[2020-08-02 10:09] VITALS: BP 137/89; TEMP 98.5; O2SAT 98
== END 2020-07-28 22:33 | disposition home or self-care (01) ==
LOC: ER 19:46
DX: S90.02XA Contusion of left ankle, initial encounter (principal); W22.8XXA Striking against or struck by other objects, initial encounter; I10 Essential (primary) hypertension; Z72.0 Tobacco use
CPT/HCPCS: 96372; 99284

== ENCOUNTER 2021-07-05 12:37 | Emergency (ER) | payer SELFPAY ==
--- OUTSIDE RECORDS SUMMARY | 2021-07-05 12:40 | XMS REPORT | Continuity of Care Document ---
:1980 Author Organization [facility] t Address [address] [place] [address] Care Team Providers Name Role Phone Polo NARESH Primary Care Physician Jacobo CARDENAS, A Attending Clinician Unavailable Singer NAILS Attending Clinician Jvoon DO Attending Clinician MATILDA Attending Clinician Unavailable Jovon NAILS Admitting Clinician Payers Payer Name Policy Type Policy Number Effective Date Expiration Date Diogo sanchez [employer] [id number] 2019 CARE 00:00:00 [employer] [facility] [id number] 2016 00:00:00 Problems Condition Condition Condition Status Onset Resolution Last Treating Co mments Source Name Details Category Date Date Treatment Clinician Date SBO (small SBO (small Disease Active 2020-08 U nivers bowel bowel 0-24 [place] 00 [facility] Ventral Ventral Disease Active Univers hernia hernia 7-12 [place] of [place] obstruct[place] obstructio 00 Me dical n n Branch Morbid Morbid Disease Active Univers obesity obesity 7-12 [place] mass [place] mass index 00 Me dical of of Branch 40.0-49.9 40.0-49.9 Obesity Obesity Disease Active Univers 12-24 ity of 00:00: [place] 00 [facility] Branch Family Family Disease Active Univers history of history of 12-24 [place] y of polyps [place] the colon the colon [facility] Tobacco Tobacco Disease Active Univers use use 12-24 ity of 00:00: [place] 00 [facility] Blood in Blood in Disease Active Unive rs stool stool 12-24 ity of 00:00: [place] [facility] Esophageal Esophageal Disease Active U nivers reflux reflux 12-24 ity of 00:00: [place] 00 [facility] Allergies, Adverse Reactions, Alerts Allergy Allergy Status Severity Reaction(s) Onset Inactive Treating Comm ents Source Name Type Date Date Clinician NO KNOWN Drug Active Univers ALLERGIE Class ity of S [facility] Social History Social Habit Start Date Stop Date Quantity Comments Source History of Cigarette Smoker Universi ty of tobacco use [facility] History SDOH University o f Alcohol Std [place] Medical Drinks Branch History SDOH University o f Alcohol Binge [place] Medic al Branch History SDOH University o f Alcohol Comment [place] Med ical Branch Exposure to Not sure University of SARS-CoV-2 [facility] (event) Branch Alcohol intake 2021-06-10 2021-06-10 Lifetime University of 00:00:00 00:00:00 non-drinker [facility] (finding) [place] Tobacco Comment 2021-02-26 2021-02-26 pt lethargic Univers ity of 00:00:00 00:00:00 [facility] History SDOH 2019-05-27 2019-05-27 1 University o f Alcohol Frequency 00:00:00 00:00:00 [facility] Sex Ass[birth year] At [birth year] Universit y of 00:00:00 00:00:00 [facility] Smoking Status Start Date Stop Date Source Current every day smoker Univers ity of [facility] Medications Ordered Filled Start Stop Current Ordering Indication Dosage Frequency Signature Comments Components Source Medication Medication Date Date Medication? Clinician (SIG) Name Name morpHINE 2020-08- No 4mg 4 mg, Slow Un bridgett injection 4 0-25 10-25 IV Push, ity of mg 04:00: 02:50 ONCE, 1 [place] 00 :00 dose, On Medical [place] 06/10/21 at 2300, STAT ondansetron 2020-08- No 4mg 4 mg, Slow Univers (ZOFRAN 0-25 10-25 IV Push, ity of (PF)) 03:45: 02:50 ONCE, 1 [place] injection 4 00 :00 dose, On Medi uzma mg [place] Branch 06/10/21 at 2245, Routine iohexol 2020-08- No [id number] 120mL 120 mL, Univers (OMNIPAQUE 0-25 10-25 Intravenou it y of 350 03:15: 03:05 s, ONCE, 1 [place] BULK-100 00 :00 dose, On Medical mL) [facility] injection 06/10/21 120 mL at 2215, Routine NaCl 0.9% 2020-08- No 500mL at 999 Univ ers (NS) bolus 0-25 10-25 mL/hr, 500 it y of infusion 02:45: 04:10 mL, IV [place] 500 mL 00 :00 Infusion, Medical ONCE, 1 Branch dose, On 06/10/21 at 2145, STAT pantoprazol 2018-08 Yes [id number] 40mg Take 1 Univers e 40 mg EC 1-21 tablet by ity of tablet 00:00: mouth [place] 00 daily. Medical Branch ibuprofen 2018-08 Yes [id number] 800mg Take 1 Univers 800 mg 1-21 tablet by ity of tablet 00:00: mouth [place] 00 every 6 Medical (six) Branch hours as needed for Pain (scale 4-6). pantoprazol 2018-08 Yes [id number] 40mg Take 1 Univers e 40 mg EC 1-21 tablet by ity of tablet 00:00: mouth [place] 00 daily. Medical Branch ibuprofen 2018-08 Yes [id number] 800mg Take 1 Univers 800 mg 1-21 tablet by ity of tablet 00:00: mouth [place] 00 every 6 Medical (six) Branch hours as needed for Pain (scale 4-6). Immunizations Ordered Filled Immunization Date Status Comments [facility] e Immunization Name Name Pneumococcal 2019-06-02 Completed [facility] o f Polysaccharide, 00:00:00 [place] Med ical PPSV23 (PNEUMOVAX) Branch TDAP 2019-06-02 Completed [facility] 00:00:00 [facility] Pneumococcal 2019-06-02 Completed [facility] o f Polysaccharide, 00:00:00 [place] Med ical PPSV23 (PNEUMOVAX) Branch TDAP 2019-06-02 Completed University of 00:00:00 [place] Medical [place] Influenza Virus 2019-05-27 Completed Universit y of Vaccine Quad .5 mL 00:00:00 [place] Medical IM 6+ MO Branch Influenza Virus 2019-05-27 Completed Universit y of Vaccine [place] .5 mL 00:00:00 [place] Medical IM 6+ MO Branch Vital Signs Vital Name Observation Time Observation Value Comments Source Systolic blood 2021-06-11 04:00:00 145 mm[Hg] Univer sity of pressure [facility] Diastolic blood 2021-06-11 04:00:00 97 [facility]Hg[facility] 2021-06-11 04:00:00 98 /min [facility] Respiratory rate 2021-06-11 04:00:00 28 /min [facility] Oxygen saturation in 2021-06-11 04:00:00 96 /min [facility] Arterial blood by [facility] Pulse oximetry [place] Body height 2021-06-11 02:43:[address] [facility] Body weight 2021-06-11 02:43:[address] [facility] BMI 2021-06-11 02:43:00 42.77 kg/m2 [facility] Body temperature 2021-06-11 02:41:00 35.78 [facility] Procedures Procedure Date / Time Performed Performing Clinician Sourc e COVID-19 (ID NOW 2021-06-11 03:52:00 Xander Mcmahon [facility] RAPID TESTING) Medical [place] CT ABDOMEN PELVIS W 2021-06-11 03:09:28 Xander Mcmahon [facility] CONTRAST [facility] CBC WITH DIFF 2021-06-11 02:48:00 Xander Mcmahon [facility] LIPASE 2021-06-11 02:48:00 Singer [facility] o [facility] COMP. METABOLIC PANEL 2021-06-11 02:48:00 [facility] ([id number]) Medical [place] CONSENT/REFUSAL FOR 2021-06-11 02:34:10 Doctor Unassigned, No Un [facility] DIAGNOSIS AND Name Medical Branch TREATMENT Encounters Start End Encounter Admission Attending Care Care Encounter Source Date/Time Date/Time Type Type Clinicians Facility Department ID 2021-06-19 Emergency [facility] [id number] Univers 09:14:32 ity of [facility] 2021-06-18 Emergency [facility] [id number] [facility] 2021-06-12 2021-06-12 Transition Olga Centeno [id number] Univers 00:00:00 00:00:00 of Care Hiram Solo [id number] [place]y [id number] [id number] [facility] 403 Branch 2021-06-10 2021-06-11 [facility] Xander Mcmahon [facility] [id number] Univers 21:36:00 00:04:00 Encounter Jovon Landry Miryam [id number] ity of [place] [id number] [place] [id number] [facility] 084 Branch 2021-03-06 2021-03-06 Outpatient LAUREN CHAMPION [facility] [id number] Univers 14:00:00 14:00:00 [id number] [facility] 2021-03-06 2021-03-06 Outpatient LAUREN CHAMPION [facility] [id number] Univers 14:00:00 14:00:00 [facility] Results Test Description Test Time Test Comments Results Result Comments Source COMP. METABOLIC PANEL (10903) 2021-06-11 03:40:15 Test Item Value Reference Range Interpretation Comme nts NA (test code = 0145718082) 139 mmol/L 135-145 K (test code = 6323361125) 4.2 mmol/L 3.5-5.0 CL (test code = 3175229961) 103 mmol/L 98-108 CO2 TOTAL (test code = 1037453318) 25 mmol/L 23-31 AGAP (test code = 0053034054) 2-16 BUN (test code = 5909499603) 22 mg/dL 7-23 GLUCOSE (test code = 3458850228) 130 mg/dL 70-110 H CREATININE (test code = 1.04 mg/dL 0.60-1.25 4297628416) TOTAL BILI (test code = 0.7 mg/dL 0.1-1.0 7315674430) CALCIUM (test code = 7196563870) 10.8 mg/dL 8.6-10.6 H T PROTEIN (test code = 9388696004) 8.1 g/dL 6.3-8.2 ALBUMIN (test code = 8285148959) 4.6 g/dL 3.5-5.0 ALK PHOS (test code = 4806091284) 58 U/L 34-122 ALTv (test code = 1742-6) 28 U/L 5-50 AST(SGOT) (test code = 9530766062) 30 U/L 13-40 eGFR (test code = 3742516072) mL/min/1.73m2 RANCHO (test code = RANCHO) Association of Glomerular Filtration Rate (GFR) and Staging of Kidney Disease* + +-------- + ------+| GFR (mL/min/1.73 m2) ?| With Kidney Damage ?| ?Without Kidney Damage+ +-- + +| ?>90 ?| ?Stage one ?| ? Normal ?+ +------- + -------+| ?60-89 ?| ?Stage two ?| ? Decreased GFR ? + +-------- + ------+| ?30-59 ?| ?Stage three ?| ? Stage three ? + +-------- + ------+| ?15-29 ?| ?Stage four ? | ? Stage four ?+ +------- + -------+| ?<15 (or dialysis) ? ?| ?Stage five ? | ? Stage five ?+ +------- + -------+ *Each stage assumes the associated GFR level has been in effect for at least three months. ?Stages 1 to 5, with or without kidney disease, indicate chronic kidney disease. Notes: Determination of stages one and two (with eGFR >59mL/min/1.73 m2) requires estimation of kidney damage for at least three months as defined by structural or functional abnormalities of the kidney, manifested by either:Pathological abnormalities or Markers of kidney damage (including abnormalities in the composition of the blood or urine or abnormalities in imaging tests). Lab Interpretation (test code = Abnormal 50011-4) [facility] Test Item Value Reference Range Interpretation Comments LIPASE (test code = 5393715455) 87 U/L 0-220 Lab Interpretation (test code = Normal 01766-6) [facility] [id number] 03:00:34 Test Item Value Reference Range Interpretation Comments WBC (test code = See_Comment H [Automated 6690-2) message] The sy stem which generated this result transmitted reference range : 4.20 - 10.70 10*3/?L. The reference range was not used to interpret this result as normal/abnormal . RBC (test code = See_Comment [Automated 789-8) message] The sy stem which generated this result transmitted reference range : 4.26 - 5.52 10*6/?L. The reference range was not used to interpret this result as normal/abnormal . HGB (test code = 15.9 g/dL 12.2-16.4 718-7) HCT (test code = 47.8 % 38.4-49.3 4544-3) MCV (test code = 88.5 fL 81.7-95.6 787-2) MCH (test code = 29.4 pg 26.1-32.7 785-6) MCHC (test code = 33.3 g/dL 31.2-35.0 786-4) RDW-SD (test code = 44.8 fL 38.5-51.6 03639-5) RDW-CV (test code = 13.7 % 12.1-15.4 788-0) PLT (test code = See_Comment [Automated 777-3) message] The sy stem which generated this result transmitted reference range : 150 - 328 10*3/ ?L. The reference r michael was not used to interpret this result as normal/abnormal . MPV (test code = 10.8 fL 9.8-13.0 64667-9) NRBC/100 WBC (test See_Comment [Automat ed code = 3220242904) message] The system which generated this result transmitted reference range : 0.0 - 10.0 /100 WBCs. The refer ence range was not u sed to interpret th is result as normal/abnormal . NRBC x10^3 (test code <0.01 See_Comment [Auto mated = 3042430111) message] The s ystem which generated this result transmitted reference range : 10*3/?L. The reference range was not used to interpret this result as normal/abnormal . GRAN MAT (NEUT) % 78.0 % (test code = 770-8) IMM GRAN % (test code 0.60 % = 0052569961) LYMPH % (test code = 12.5 % 736-9) MONO % (test code = 6.8 % 5905-5) EOS % (test code = 1.4 % 713-8) BASO % (test code = 0.7 % 706-2) GRAN MAT x10^3(ANC) 8.74 10*3/uL 1.99-6.95 H (test code = 2207315001) IMM GRAN x10^3 (test 0.07 10*3/uL 0.00-0.06 H code = 3851326547) LYMPH x10^3 (test code 1.40 10*3/uL 1.09-3.23 = 731-0) MONO x10^3 (test code 0.76 10*3/uL 0.36-1.02 = 742-7) EOS x10^3 (test code = 0.16 10*3/uL 0.06-0.53 711-2) BASO x10^3 (test code 0.08 10*3/uL 0.01-0.09 = 704-7) Lab Interpretation Abnormal (test code = 84173-4) [facility]"
--- NOTE | 2021-07-05 13:44 | EDPHYS ---
Physician Documentation [facility] Name: Asher Gomez Age: 41 yrs Sex: Male : 1980 Arrival Date: 07/05/2021 Time: 12:39 Bed 12 Private MD: ED Physician Jesus Kelly HPI: 07/05 13:16 This 41 yrs old Male presents to ER via Ambulatory with complaints of Hand Swelling. jr8 13:16 Onset: The symptoms/episode began/occurred acutely, 2 day(s) ago. Modifying factors: jr8 The symptoms are alleviated by nothing, the symptoms are aggravated by movement. Associated signs and symptoms: The patient has no apparent associated signs or symptoms. Severity of symptoms: At their worst the symptoms were moderate, in the emergency department the symptoms are unchanged. The patient has not experienced similar symptoms in the past. The patient has not recently seen a physician. This is a 41-year-old male patient that presented to the emergency room with complaints of right wrist and hand pain. Patient stated that he fell backward trying to catch himself with his right hand. Since then has had moderate pain with decreased range of motion primarily to the right wrist. Denies any other injury or symptoms at this time.. Historical: - Allergies: 12:44 No Known Allergies; iw - Home Meds: 12:44 None [Active]; iw - PMHx: 12:44 Asthma; Bipolar disorder; Diabetes; Hypertension; Sleep Apnea; iw - PSHx: 12:44 None; iw - Immunization history:: Client reports receiving the 2nd dose of the Covid vaccine. - Social history:: Smoking status: Patient reports the use of cigarette tobacco products, smokes one pack cigarettes per day. ROS: 13:16 Eyes: Negative for injury, pain, redness, and discharge, ENT: Negative for injury, jr8 pain, and discharge, Neck: Negative for injury, pain, and swelling, Cardiovascular: Negative for chest pain, palpitations, and edema, Respiratory: Negative for shortness of breath, cough, wheezing, and pleuritic chest pain, Abdomen/GI: Negative for abdominal pain, nausea, vomiting, diarrhea, and constipation, Back: Negative for injury and pain, Skin: Negative for injury, rash, and discoloration, Neuro: Negative for headache, weakness, numbness, tingling, and seizure. 13:16 MS/extremity: Positive for decreased range of motion, pain, tenderness, of the Right wrist. Exam: 13:16 Cardiovascular: Regular rate and rhythm with a normal S1 and S2. No gallops, murmurs, jr8 or rubs. Normal PMI, no JVD. No pulse deficits. Respiratory: Lungs have equal breath sounds bilaterally, clear to auscultation and percussion. No rales, rhonchi or wheezes noted. No increased work of breathing, no retractions or nasal flaring. Skin: Warm, dry with normal turgor. Normal color with no rashes, no lesions, and no evidence of cellulitis. Neuro: Awake and alert, GCS 15, oriented to person, place, time, and situation. Cranial nerves II-XII grossly intact. Motor strength 5/5 in all extremities. Sensory grossly intact. 13:16 Musculoskeletal/extremity: Extremities: grossly normal except: noted in the right hand: And has mild to moderate tenderness to the dorsal right wrist with decreased range of motion secondary to pain. Sensation intact and is able to flex and extend his hand. Pulses 2+ to affected extremity. Remainder of unaffected extremities unremarkable.. Vital Signs: 12:43 BP 133 / 100; Pulse 79; Resp 16; Temp 97.8; Pulse Ox 99% on R/A; Weight 120.2 kg; iw Height 5 ft. 2 in. (157.48 cm); Pain 8/10; 12:43 Body Mass Index 48.47 (120.20 kg, 157.48 cm) iw MDM: 12:51 Patient medically screened. jr8 13:16 Data reviewed: vital signs, nurses notes, radiologic studies, plain films. Data jr8 interpreted: Pulse oximetry: on room air is 99 %. Interpretation: normal. Counseling: I had a detailed discussion with the patient and/or guardian regarding: the historical points, exam findings, and any diagnostic results supporting the discharge/admit diagnosis, the need for outpatient follow up, a family practitioner. 07/05 13:12 Order name: XRAY Wrist RIGHT 3 view; Complete Time: 13:48 jr8 Administered Medications: No medications were administered Disposition: 17:25 Co-signature as Attending Physician, Jesus Kelly MD I agree with the assessment and kdr plan of care. Disposition Summary: 07/05/21 13:44 Discharge Ordered Location: Home jr8 Problem: new jr8 Symptoms: have improved jr8 Condition: Stable jr8 Diagnosis - Sprain of radiocarpal joint of left wrist jr8 Followup: jr8 - With: Private Physician - When: 2 - 3 days - Reason: Recheck today's complaints, Continuance of care, Re-evaluation by your physician Discharge Instructions: - Wrist Sprain, Adult jr8 - Discharge Summary Sheet tw2 Forms: - Medication Reconciliation Form jr8 - Thank You Letter jr8 - Antibiotic Education jr8 - Prescription Opioid Use jr8 - Work release form tw2 Signatures: Dispatcher [employer] EDVT Jesus Kelly MD MD kdr Williams, Irene, RN RN iw Adriano Alvarenga PA PA jr8
--- NOTE | 2021-07-05 13:44 | ER ---
Nurse's Notes [facility] Name: Asher Gomez Age: 41 yrs Sex: Male : 1980 Arrival Date: 07/05/2021 Time: 12:39 Bed 12 Private MD: Diagnosis: Sprain of radiocarpal joint of left wrist Presentation: 07/05 12:43 Chief complaint: Patient states: fell on right hand yesterday, has pain and swelling to iw right hand and wrist. Coronavirus screen: At this time, the client does not indicate any symptoms associated with coronavirus-19. Ebola Screen: Patient negative for fever greater than or equal to 101.5 degrees Fahrenheit, and additional compatible Ebola Virus Disease symptoms Patient denies exposure to infectious person. Patient denies travel to an Ebola-affected area in the 21 days before illness onset. No symptoms or risks identified at this time. Initial Sepsis Screen: Does the patient meet any 2 criteria? No. Patient's initial sepsis screen is negative. Does the patient have a suspected source of infection? No. Patient's initial sepsis screen is negative. Risk Assessment: Do you want to hurt yourself or someone else? Patient reports no desire to harm self or others. Onset of symptoms was July 04, 2021. 12:43 Method Of Arrival: Ambulatory iw 12:43 Acuity: HERMELINDO 4 iw Historical: - Allergies: 12:44 No Known Allergies; iw - Home Meds: 12:44 None [Active]; iw - PMHx: 12:44 Asthma; Bipolar disorder; Diabetes; Hypertension; Sleep Apnea; iw - PSHx: 12:44 None; iw - Immunization history:: Client reports receiving the 2nd dose of the Covid vaccine. - Social history:: Smoking status: Patient reports the use of cigarette tobacco products, smokes one pack cigarettes per day. Screenin:00 Abuse screen: Denies threats or abuse. Nutritional screening: No deficits noted. tw2 Tuberculosis screening: No symptoms or risk factors identified. Fall Risk None identified. Assessment: 13:05 General: Appears in no apparent distress. Behavior is calm, cooperative, appropriate tw2 for age. Pain: Denies pain. Neuro: Level of Consciousness is awake, alert, obeys commands, Oriented to person, place, time, situation. Respiratory: Airway is patent Respiratory effort is even, unlabored, Respiratory pattern is regular, symmetrical. Musculoskeletal: Circulation, motion, and sensation intact. Range of motion: intact in all extremities, Swelling present in right hand. 13:26 Reassessment: xray is at bedside at this time. tw2 13:48 Reassessment: Patient appears in no apparent distress at this time. No changes from tw2 previously documented assessment. Patient is alert, oriented x 3, equal unlabored respirations, skin warm/dry/pink. Vital Signs: 12:43 BP 133 / 100; Pulse 79; Resp 16; Temp 97.8; Pulse Ox 99% on R/A; Weight 120.2 kg; iw Height 5 ft. 2 in. (157.48 cm); Pain 8/10; 12:43 Body Mass Index 48.47 (120.20 kg, 157.48 cm) iw ED Course: 12:39 Patient arrived in ED. as 12:44 Triage completed. iw 12:45 Arm band placed on. iw 12:45 Bed in low position. Call light in reach. tw2 12:51 Adriano Alvarenga PA is PHCP. jr8 12:51 Jesus Kelly MD is Attending Physician. jr8 13:00 Alicja Younger RN is Primary Nurse. tw2 13:31 XRAY Wrist RIGHT 3 view In Process Unspecified. EDMS 13:48 No provider procedures requiring assistance completed. Patient did not have IV access tw2 during this emergency room visit. Administered Medications: No medications were administered Outcome: 13:44 Discharge ordered by . jr8 13:48 Discharged to home ambulatory. tw2 13:48 Condition: stable 13:48 Discharge instructions given to patient, Instructed on discharge instructions, follow up and referral plans. Demonstrated understanding of instructions, follow-up care. 13:49 Patient left the ED. tw2 Signatures: Dispatcher [employer] Whit Salomon Irene, RN RN Adriano Alvarenga PA PA jr8 Alicja Younger RN RN tw2
--- NOTE | 2021-07-05 13:46 | RAD REPORT ---
EXAM DESCRIPTION: RAD - Wrist Right 3 View - 07/05/2021 1:31 pm CLINICAL HISTORY: PAIN COMPARISON: No comparisons FINDINGS/IMPRESSION: No acute fracture. No malalignment. Radiocarpal joint space narrowing.
== END 2021-07-05 13:49 | disposition home or self-care (01) ==
LOC: ER 12:37
DX: S63.521A Sprain of radiocarpal joint of right wrist, initial encounter (principal); W19.XXXA Unspecified fall, initial encounter; I10 Essential (primary) hypertension
CPT/HCPCS: 99283

== ENCOUNTER 2021-08-18 18:15 | Emergency (ER) | payer SELFPAY ==
--- OUTSIDE RECORDS SUMMARY | 2021-08-18 18:19 | XMS REPORT | Continuity of Care Document ---
:1980 Author Organization [facility] t Address [address] [place] [address] Care Team Providers Name Role Phone Polo INFANTE Primary Care Physician Jacobo CARDENAS, A Attending Clinician Unavailable DO Attending Clinician Jovon DO Attending Clinician MATILDA Attending Clinician Unavailable Jovon NAILS Admitting Clinician Payers Payer Name Policy Type Policy Number Effective Date Expiration Date Diogo sanchez [employer] [id number] 2019 CARE 00:00:00 [employer] [id number] 2016 00:00:00 Problems Condition Condition Condition Status [...] Univers 12-24 ity of 00:00: [place] 00 [facility] Branch Family Family Disease Active Univers history of history of 12-24 [place] y of polyps [place] the colon the colon [facility] Tobacco Tobacco Disease Active Univers use use 12-24 ity of 00:00: [place] 00 [facility] Blood in Blood in Disease Active Unive rs stool stool 12-24 ity of 00:00: [place] 00 Medical Branch Esophageal Esophageal Disease Active U nivers reflux reflux 12-24 ity of 00:00: [place] 00 [facility] Allergies, Adverse Reactions, Alerts Allergy Allergy Status Severity Reaction(s) Onset Inactive Treating Comm ents Source Name Type Date Date Clinician NO KNOWN Drug Active Univers ALLERGIE Class ity of S [facility] Social History Social Habit Start Date Stop Date Quantity Comments Source History of Cigarette Smoker Universi ty of tobacco use [place] [facility] [place] History SDOH University o f Alcohol Std [place] [facility] Drinks Branch History SDOH University o f Alcohol Binge [place] [facility] al [facility] History SDOH University o f Alcohol Comment [place] [facility] Exposure to Not sure University of SARS-CoV-2 [facility] (event) Branch Alcohol intake 2021-06-10 2021-06-10 Lifetime University of 00:00:00 00:00:00 non-drinker [facility] (finding) [place] Tobacco Comment 2021-02-26 2021-02-26 pt lethargic Univers ity of 00:00:00 00:00:00 [facility] History SDOH 2019-05-27 2019-05-27 1 University o f Alcohol Frequency 00:00:00 00:00:00 [facility] [place] Sex Assigned At [birth year] Universit y of 00:00:00 00:00:00 [facility] Smoking Status Start Date Stop Date Source Current every day smoker Univers ity of [facility] Medications Ordered Filled Start Stop Current Ordering Indication Dosage Frequency Signature Comments Components Source Medication Medication Date Date Medication? Clinician (SIG) Name Name morpHINE 2020-08 No 4mg 4 mg, Slow Un bridgett injection 4 0-25 10-25 IV Push, ity of mg 04:00: 02:50 ONCE, 1 [place] 00 :00 dose, On Medical [place] 06/10/21 at 2300, STAT ondansetron 2020-08- No 4mg 4 mg, Slow Univers (ZOFRAN 0-25 10-25 IV Push, ity of (PF)) 03:45: 02:50 ONCE, 1 [place] injection 4 00 :00 dose, On Medi uzma mg [facility] 06/10/21 at 2245, Routine iohexol 2020-08- No [id number] 120mL 120 mL, Univers (OMNIPAQUE 0-25 10-25 Intravenou it y of 350 03:15: 03:05 s, ONCE, 1 [place] BULK-100 00 :00 dose, On Medical mL) [facility] injection 06/10/21 120 mL at 2215, Routine NaCl 0.9% 2020-08- No 500mL at 999 Univ ers (NS) bolus 0-25 10-25 mL/hr, 500 it y of infusion 02:45: 04:10 mL, IV [place] 500 mL 00 :00 Infusion, Medical ONCE, 1 Branch dose, On 06/10/21 at 2145, STAT pantoprazol 2018-08 Yes [id number] 40mg Take 1 Univers e 40 mg EC 1-21 tablet by ity of tablet 00:00: mouth [place] 00 daily. Medical Branch ibuprofen 2018-08 Yes [id number] 800mg Take 1 Univers 800 mg 1-21 tablet by ity of tablet 00:00: mouth [place] 00 every 6 Medical (six) Branch hours as needed for Pain (scale 4-6). pantoprazol 2018-08 Yes [id number] 40mg Take 1 Univers e 40 mg EC 1-21 tablet by ity of tablet 00:00: mouth [place] 00 daily. Medical Branch ibuprofen 2018-08 Yes [id number] 800mg Take 1 Univers 800 mg 1-21 tablet by ity of tablet 00:00: mouth [place] 00 every 6 Medical (six) Branch hours as needed for Pain (scale 4-6). Immunizations Ordered Filled Immunization Date Status Comments [facility] e Immunization Name Name Pneumococcal 2019-06-02 Completed [place] o f Polysaccharide, 00:00:00 [place] Med ical PPSV23 (PNEUMOVAX) Branch TDAP 2019-06-02 Completed University of 00:00:00 [facility] Pneumococcal 2019-06-02 Completed [place] o f Polysaccharide, 00:00:00 [place] Med ical PPSV23 (PNEUMOVAX) Branch TDAP 2019-06-02 Completed University of 00:00:00 [facility] Influenza Virus 2019-05-27 Completed Universit y of Vaccine Quad .5 mL 00:00:00 [place] [facility] IM 6+ MO Branch Influenza Virus 2019-05-27 Completed Universit y of Vaccine [place] .5 mL 00:00:00 [facility] IM 6+ MO Branch Vital Signs Vital Name Observation Time Observation Value Comments Source Systolic blood 2021-06-11 04:00:00 145 mm[Hg] Univer sity of pressure [facility] Diastolic blood 2021-06-11 04:00:00 97 [facility]Hg[facility] 2021-06-11 04:00:00 98 /min [facility] Respiratory rate 2021-06-11 04:00:00 28 /min [facility] Oxygen saturation in 2021-06-11 04:00:00 96 /min [facility] Arterial blood by [facility] Pulse oximetry [place] Body height 2021-06-11 02:43:00 167.6 cm [facility] Body weight 2021-06-11 02:43:00 120.203 kg [facility] BMI 2021-06-11 02:43:00 42.77 kg/m2 [facility] Body temperature 2021-06-11 02:41:00 35.78 Ingrid [facility] Procedures Procedure Date / Time Performed Performing Clinician Humaira e PAMELAID-19 (ID NOW 2021-06-11 03:52:00 Singer [facility] RAPID TESTING) [facility] CT ABDOMEN PELVIS W 2021-06-11 03:09:28 Xander Mcmahon [facility] CONTRAST [facility] CBC WITH DIFF 2021-06-11 02:48:00 Singer Xander [place] [facility] LIPASE 2021-06-11 02:48:00 Singer [facility] COMP. METABOLIC PANEL 2021-06-11 02:48:00 Xander Mcmahon [facility] ([id number]) [facility] CONSENT/REFUSAL FOR 2021-06-11 02:34:10 Doctor Unassigned, No Un [facility] DIAGNOSIS AND Name Medical Branch TREATMENT Encounters Start End Encounter Admission Attending Care Care Encounter Source Date/Time Date/Time Type Type Clinicians Facility Department ID 2021-06-19 Emergency [facility] [id number] Univers 09:14:32 ity [facility] 2021-06-18 Emergency [facility] [id number] Univers 07:21:37 ity [facility] 2021-06-12 2021-06-12 Transition Olga Centeno [id number] Univers 00:00:00 00:00:00 of Care Hiram Solo [id number] ity of [place] [id number] [facility] [id number] [facility] 403 Branch 2021-06-10 2021-06-11 [facility] Xander Mcmahon [facility] [id number] Univers 21:36:00 00:04:00 Encounter Jovon Landry Miryam [id number] ity of [place] [id number] [place] [facility] [id number] [facility] 084 Branch 2021-03-06 2021-03-06 Outpatient LAUREN CHAMPION [facility] [id number] Univers 14:00:00 14:00:00 [id number] [facility] 2021-03-06 2021-03-06 Outpatient LAUREN CHAMPION [facility] [id number] Univers 14:00:00 14:00:00 [facility] Results Test Description Test Time Test Comments Results Result Comments Source COMP. METABOLIC PANEL (33663) 2021-06-11 03:40:15 Test Item Value Reference Range Interpretation Comme nts NA (test code = 5345254861) 139 mmol/L 135-145 K (test code = 8782544957) 4.2 mmol/L 3.5-5.0 CL (test code = 7831298224) 103 mmol/L 98-108 CO2 TOTAL (test code = 3335943705) 25 mmol/L 23-31 AGAP (test code = 9878011787) 2-16 BUN (test code = 9101616585) 22 mg/dL 7-23 GLUCOSE (test code = 1918591229) 130 mg/dL 70-110 H CREATININE (test code = 1.04 mg/dL 0.60-1.25 5138115513) TOTAL BILI (test code = 0.7 mg/dL 0.1-1.9 7724063247) CALCIUM (test code = 9708463270) 10.8 mg/dL 8.6-10.6 H T PROTEIN (test code = 3575427476) 8.1 g/dL 6.3-8.2 ALBUMIN (test code = 3246938824) 4.6 g/dL 3.5-5.0 ALK PHOS (test code = 9709123567) 58 U/L 34-122 ALTv (test code = 1742-6) 28 U/L 5-50 AST(SGOT) (test code = 7998511233) 30 U/L 13-40 eGFR (test code = 4401162263) mL/min/1.73m2 RANCHO (test code = RANCHO) Association [...] tests). Lab Interpretation (test code = Abnormal 08713-9) [facility] Test Item Value Reference Range Interpretation Comments LIPASE (test code = 3364814122) 87 U/L 0-220 Lab Interpretation (test code = Normal 26771-8) [facility] [id number] 03:00:34 Test Item Value Reference Range Interpretation Comments WBC (test code = See_Comment H [Automated 0090-2) message] The sy stem which generated this [...] RDW-SD (test code = 44.8 fL 38.5-51.6 94253-6) RDW-CV (test code = 13.7 % 12.1-15.4 788-0) PLT (test code = See_Comment [Automated 777-3) message] The sy stem which generated this result transmitted reference range : 150 - 328 10*3/ ?L. The reference r michael was not used to interpret this result as normal/abnormal . MPV (test code = 10.8 fL 9.8-13.0 77417-8) NRBC/100 WBC (test See_Comment [Automat ed code = 0760214434) message] The system which generated this result transmitted reference range : 0.0 - 10.0 /100 WBCs. The refer ence range was not u sed to interpret th is result as normal/abnormal . NRBC x10^3 (test code <0.01 See_Comment [Auto mated = 2719886681) message] The s ystem which generated this result transmitted reference range : 10*3/?L. The reference range was not used to interpret this result as normal/abnormal . GRAN MAT (NEUT) % 78.0 % (test code = 770-8) IMM GRAN % (test code 0.60 % = 2366471182) LYMPH % (test code = 12.5 % 736-9) MONO % (test code = 6.8 % 5905-5) EOS % (test code = 1.4 % 713-8) BASO % (test code = 0.7 % 706-2) GRAN MAT x10^3(ANC) 8.74 10*3/uL 1.99-6.95 H (test code = 0856018578) IMM GRAN x10^3 (test 0.07 10*3/uL 0.00-0.06 H code = 3299926743) LYMPH x10^3 (test code 1.40 10*3/uL 1.09-3.23 = 731-0) MONO x10^3 (test code 0.76 10*3/uL 0.36-1.02 = 742-7) EOS x10^3 (test code = 0.16 10*3/uL 0.06-0.53 711-2) BASO x10^3 (test code 0.08 10*3/uL 0.01-0.09 = 704-7) Lab Interpretation Abnormal (test code = 97395-5) [facility]"
[2021-08-18 21:54] LABS: SARS-COV-2 RT PCR NEGATIVE (NEGATIVE)
[2021-08-18] MEDS ORDERED: HYDROCODONE/CHLORPHEN 5 ML/OSYR ONE (23:27)
--- NOTE | 2021-08-19 00:01 | EDPHYS ---
Physician Documentation [facility] Name: Asher Gomez Age: 41 yrs Sex: Male : 1980 Arrival Date: 08/18/2021 Time: 18:19 Bed DIS1 Private MD: ED Physician Heri Roy HPI: 08/18 23:25 This 41 yrs old Male presents to ER via Ambulatory with complaints of Cough, Fever, jr8 headache. 23:25 Onset: The symptoms/episode began/occurred acutely, 4 day(s) ago. Severity of symptoms: jr8 At their worst the symptoms were moderate, in the emergency department the symptoms are unchanged. Modifying factors: The symptoms are alleviated by nothing, the symptoms are aggravated by nothing. Associated signs and symptoms: The patient has no apparent associated signs or symptoms. The patient has not experienced similar symptoms in the past. The patient has not recently seen a physician. Historical: - Allergies: 20:22 No Known Allergies; bb - Home Meds: 20:22 None [Active]; bb - PMHx: 20:22 Asthma; Bipolar disorder; Diabetes; Hypertension; Sleep Apnea; bb - Immunization history:: Client reports receiving the 2nd dose of the Covid vaccine, does not know which one. - Social history:: Smoking status: Patient reports the use of cigarette tobacco products, smokes one-half pack cigarettes per day. ROS: 23:25 Constitutional: Positive for body aches, chills, fever. jr8 23:25 Respiratory: Positive for cough, Negative for shortness of breath, sputum production, wheezing. 23:25 Neuro: Positive for headache. 23:25 All other systems are negative. Exam: 23:25 Constitutional: This is a well developed, well nourished patient who is awake, alert, jr8 and in no acute distress. ENT: Nares patent. No nasal discharge, no septal abnormalities noted. Tympanic membranes are normal and external auditory canals are clear. Oropharynx with no redness, swelling, or masses, exudates, or evidence of obstruction, uvula midline. Mucous membranes moist. Neck: Trachea midline, no thyromegaly or masses palpated, and no cervical lymphadenopathy. Supple, full range of motion without nuchal rigidity, or vertebral point tenderness. No Meningismus. Respiratory: Lungs have equal breath sounds bilaterally, clear to auscultation and percussion. No rales, rhonchi or wheezes noted. No increased work of breathing, no retractions or nasal flaring. Abdomen/GI: Soft, non-tender, with normal bowel sounds. No distension or tympany. No guarding or rebound. No evidence of tenderness throughout. Back: No spinal tenderness. No costovertebral tenderness. Full range of motion. Skin: Warm, dry with normal turgor. Normal color with no rashes, no lesions, and no evidence of cellulitis. MS/ Extremity: Pulses equal, no cyanosis. Neurovascular intact. Full, normal range of motion. Neuro: Awake and alert, GCS 15, oriented to person, place, time, and situation. Cranial nerves II-XII grossly intact. Motor strength 5/5 in all extremities. Sensory grossly intact. 23:25 Cardiovascular: Rate: tachycardic, Pulses: Pulses are 2+ in right radial artery and left radial artery. Heart sounds: normal, normal S1and S2, no S3 or S4, no murmur, no rub, no gallop, Edema: is not appreciated, JVD: is not appreciated. Vital Signs: 20:20 BP 148 / 96; Pulse 110; Resp 26 S; Temp 98.6(O); Pulse Ox 98% on R/A; Weight 129.27 kg bb (R); Height 5 ft. 6 in. (167.64 cm) (R); Pain 10/10; 08/19 00:25 BP 156 / 71; Pulse 112; Resp 16; Temp 98.7(O); Pulse Ox 94% ; lt3 08/18 20:20 Body Mass Index 46.00 (129.27 kg, 167.64 cm) bb MDM: 08/18 23:08 Patient medically screened. jr8 08/19 00:00 Data reviewed: vital signs, nurses notes, radiologic studies, plain films. Data jr8 interpreted: Pulse oximetry: on room air is 98 %. Interpretation: normal. Counseling: I had a detailed discussion with the patient and/or guardian regarding: the historical points, exam findings, and any diagnostic results supporting the discharge/admit diagnosis, radiology results, the need for outpatient follow up, a family practitioner, to return to the emergency department if symptoms worsen or persist or if there are any questions or concerns that arise at home. 00:23 ED course: Patient at rest has been between 95 to 98% oxygen saturation room air. With jr8 ambulation will go to 94% oxygen saturation again room air. No significant increase in work of breathing. Close return precautions given to patient as patient does have a retrocardiac pneumonia. I have put patient on antibiotics along with cough medicine. Needs to follow-up with his primary care in the next 1 to 2 days.. 08/18 20:25 Order name: COVID-19/FLU A+B (Document "Date of Onset" if Symptomatic); Complete Time: bb 22:58 08/18 23:18 Order name: XRAY Chest Pa And Lat (2 Views) jr8 Administered Medications: 08/18 23:27 Drug: Tussionex Pennkinetic ER (chlorpheniramine-hydrocodone) Suspension 5 ml Route: PO;bb 08/19 00:28 Follow up: Response: No adverse reaction 00:16 Drug: LevaQUIN (levofloxacin) 750 mg Route: PO; 00:28 Follow up: Response: Medication administered at discharge. Disposition: 06:19 Co-signature as Attending Physician, Heri Roy MD. [facility] Disposition Summary: 08/19/21 00:01 Discharge Ordered Location: Home jr8 Problem: new jr8 Symptoms: have improved jr8 Condition: Stable jr8 Diagnosis - Unspecified bacterial pneumonia jr8 Followup: jr8 - With: Private Physician - When: 5 - 6 days - Reason: Recheck today's complaints, Continuance of care, Re-evaluation by your physician Discharge Instructions: - Discharge Summary Sheet jr8 - Community-Acquired Pneumonia, Adult jr8 Forms: - Medication Reconciliation Form jr8 - Thank You Letter jr8 - Antibiotic Education jr8 - Prescription Opioid Use jr8 Prescriptions: - promethazine-DM 6.25-15 mg/5 mL Oral syrup - take 5 milliliter by ORAL route every 4-6 hours as needed, not to exceed 30 mL jr8 in 24 hours; 120 milliliter; Refills: 0, Product Selection Permitted - levofloxacin 750 mg Oral Tablet - take 1 tablet by ORAL route once daily for 7 days; 7 tablet; Refills: 0, jr8 Product Selection Permitted Signatures: [facility] Priscilla Nicole RN RN Adriano Hampton PA PA [facility] Heri Roy MD MD 7
--- NOTE | 2021-08-19 00:01 | ER ---
Nurse's Notes [facility] Name: Asher Gomez Age: 41 yrs Sex: Male : 1980 Arrival Date: 08/18/2021 Time: 18:19 Bed DIS1 Private MD: Diagnosis: Unspecified bacterial pneumonia Presentation: 08/18 20:20 Chief complaint: Patient states: has had fever, cough, chest pain x 3 days. Coronavirus bb screen: cough unrelated to allergies, fever, Client presents with at least one sign or symptom that may indicate coronavirus-19. Standard/surgical mask placed on the client. Ebola Screen: No symptoms or risks identified at this time. Initial Sepsis Screen: Does the patient meet any 2 criteria? No. Patient's initial sepsis screen is negative. Initial Sepsis Screen: Does the patient have a suspected source of infection? No. Patient's initial sepsis screen is negative. Risk Assessment: Do you want to hurt yourself or someone else? Patient reports no desire to harm self or others. Onset of symptoms was August 15, 2021. 20:20 Method Of Arrival: Ambulatory bb 20:20 Acuity: HERMELINDO 3 bb Triage Assessment: 20:22 General: Appears uncomfortable, ill, Behavior is calm, cooperative. Pain: Complains of bb pain in all over. Neuro: Level of Consciousness is awake, alert, obeys commands, Oriented to person, place, time, situation. Cardiovascular: Capillary refill < 3 seconds Patient's skin is warm and dry. Respiratory: Respiratory effort is labored, Respiratory pattern is tachypnea. GI: Abdomen is obese. Derm: Skin is pink, warm \\T\\ dry. Musculoskeletal: Circulation, motion, and sensation intact. Historical: - Allergies: 20:22 No Known Allergies; bb - Home Meds: 20:22 None [Active]; bb - PMHx: 20:22 Asthma; Bipolar disorder; Diabetes; Hypertension; Sleep Apnea; bb - Immunization history:: Client reports receiving the 2nd dose of the Covid vaccine, does not know which one. - Social history:: Smoking status: Patient reports the use of cigarette tobacco products, smokes one-half pack cigarettes per day. Screenin:27 Abuse screen: Denies threats or abuse. Nutritional screening: No deficits noted. bb Tuberculosis screening: No symptoms or risk factors identified. Fall Risk None identified. Assessment: 23:27 Reassessment: No changes from previously documented assessment. pt is A\\T\\O x 4, bb tachypneic, awaiting Xray. 08/19 00:27 Reassessment: pt is A\\T\\O x 4, resp tachypneic, pt ambulated O2 sats 94% ED provider bb notified pt okay for discharge. Pt verbalized understanding of and agrees to plan of care discharge instructions given pt ambulated with steady gait to exit. Vital Signs: 08/18 20:20 BP 148 / 96; Pulse 110; Resp 26 S; Temp 98.6(O); Pulse Ox 98% on R/A; Weight 129.27 kg bb (R); Height 5 ft. 6 in. (167.64 cm) (R); Pain 10/10; 08/19 00:25 BP 156 / 71; Pulse 112; Resp 16; Temp 98.7(O); Pulse Ox 94% ; lt3 08/18 20:20 Body Mass Index 46.00 (129.27 kg, 167.64 cm) bb ED Course: 08/18 18:19 Patient arrived in ED. mr 20:22 Triage completed. bb 20:22 Arm band placed on Patient placed in waiting room, Patient notified of wait time. bb covid/flu swab sent. 20:32 COVID swab sent to lab. Flu and/or RSV swab sent to lab. lt3 20:33 COVID-19/FLU A+B (Document "Date of Onset" if Symptomatic) Sent. lt3 23:08 [facility]ren[facility] jr8 23:08 Heri Roy MD is Attending Physician. jr8 23:27 Patient has correct armband on for positive identification. bb 23:27 Patient maintains SpO2 saturation greater than 95% on room air. bb 08/19 00:16 Priscilla Nicole, THERESA is Primary Nurse. bb 00:23 XRAY Chest Pa And Lat (2 Views) In Process Unspecified. EDMS 00:27 No provider procedures requiring assistance completed. Patient did not have IV access bb during this emergency room visit. Administered Medications: 08/18 23:27 Drug: Tussionex Pennkinetic ER (chlorpheniramine-hydrocodone) Suspension 5 ml Route: PO;bb 08/19 00:28 Follow up: Response: No adverse reaction bb 00:16 Drug: LevaQUIN (levofloxacin) 750 mg Route: PO; bb 00:28 Follow up: Response: Medication administered at discharge. jennifer Outcome: 00:01 Discharge ordered by MD. haynes 00:27 Discharged to home ambulatory. jennifer 00: Condition: stable 00:27 Discharge instructions given to patient, Instructed on discharge instructions, follow up and referral plans. medication usage, Demonstrated understanding of instructions, follow-up care, medications, Prescriptions given X 2. 00:28 Patient left the ED. bb Signatures: Dispatcher [employer] Alysha Goff Brenda, RN RN Adriano Hampton PA PA jr8 Jessica Cazares 3
[2021-08-19] MEDS ORDERED: levoFLOXacin 750 MG TAB ONE (00:18)
[2021-08-19 00:35] VITALS: BP 156/71; TEMP 98.7; O2SAT 94
--- NOTE | 2021-08-19 07:40 | RAD REPORT ---
EXAM DESCRIPTION: RAD - Chest Pa And Lat (2 Views) - 08/19/2021 12:23 am CLINICAL HISTORY: COUGH COMPARISON: Chest Single View dated 09/07/2019; Chest Single View dated 08/28/2016; Chest Single View dated 08/26/2016; Chest Single View dated 08/25/2016 FINDINGS: Lines: None. Lungs: No evidence of edema or pneumonia. Pleural: No significant pleural effusions or pneumothorax. Cardiac: The heart size is within normal limits. Bones: No acute fractures. Other: IMPRESSION: No acute cardiopulmonary disease.
== END 2021-08-19 00:28 | disposition home or self-care (01) ==
LOC: ER 18:15
DX: J15.9 Unspecified bacterial pneumonia (principal); Z20.822 Contact with and (suspected) exposure to COVID-19; F17.210 Nicotine dependence, cigarettes, uncomplicated
CPT/HCPCS: 0240U; 71046; 99284

== ENCOUNTER 2021-09-02 06:48 | Inpatient (IN) | payer SELFPAY ==
--- OUTSIDE RECORDS SUMMARY | 2021-09-02 06:51 | XMS REPORT | Continuity of Care Document ---
:1980 Author Organization [facility] t Address [address] [place] [address] Care Team Providers Name Role Phone Polo NARESH Primary Care Physician Jacobo CARDENAS, A Attending Clinician Unavailable Singer NAILS Attending Clinician Jovon DO Attending Clinician MATILDA Attending Clinician Unavailable Jovon NAILS Admitting Clinician Payers Payer Name Policy Type Policy Number Effective Date Expiration Date Diogo sanchez [employer] [id number] 2019 CARE 00:00:00 [employer] [id number] 2016 00:00:00 Problems Condition Condition Condition Status [...] 40.0-49.9 40.0-49.9 Obesity Obesity Disease Active Univers 5-09 ity of 00:00: [place] 00 [facility] Family Family Disease Active Univers history of history of 12-24 [place] y of [place] colon the colon [facility] Tobacco Tobacco Disease Active Univers use use 12-24 ity of 00:00: [address] Blood in Blood in Disease Active Unive rs stool stool 12-24 ity of 00:00: [place] [facility] Esophageal Esophageal Disease Active U nivers reflux reflux 12-24 ity of 00:00: [address] Allergies, Adverse Reactions, Alerts Allergy Allergy Status Severity Reaction(s) Onset Inactive Treating Comm ents Source Name Type Date Date Clinician NO KNOWN Drug Active Univers ALLERGIE Class ity of S [facility] Social History Social Habit Start Date Stop Date Quantity Comments Source History of Cigarette Smoker Universi ty of tobacco use [facility] History SDOH University o f Alcohol Std [place] [facility] Drinks [facility] History SDOH University o f Alcohol Binge [place] [facility] al [facility] History SDOH University o f Alcohol Comment [place] [facility] ical Branch Exposure to Not sure University of SARS-CoV-[address] [facility] (event) [place] Alcohol intake 2021-06-10 2021-06-10 Lifetime University of 00:00:00 00:00:00 non-drinker [facility] (finding) [place] Tobacco Comment 2021-02-26 2021-02-26 pt lethargic Univers ity of 00:00:00 00:00:00 [facility] History SDOH 2019-05-27 2019-05-27 1 University o f Alcohol Frequency 00:00:00 00:00:00 [facility] Sex Ass[birth year] At [birth year] Universit y of 00:00:00 00:00:00 [facility] Smoking Status Start Date Stop Date Source Current every day smoker Univers ity of [facility] Medications Ordered Filled Start Stop Current Ordering Indication Dosage Frequency Signature Comments Components Source Medication Medication Date Date Medication? Clinician (SIG) Name Name morpHINE 2020-08 No 4mg 4 mg, Slow Un bridgett injection 4 0-25 10-25 IV Push, ity of mg 04:00: 02:50 ONCE, 1 [place] 00 :00 dose, On Medical [place] 06/10/21 at 2300, STAT ondansetron 2020-08- No 4mg 4 mg, Slow Univers (ZOFRAN 0-25 10-25 IV Push, ity of (PF)) 03:45: 02:50 ONCE, 1 [place] injection 4 00 :00 dose, On Medi uzma mg [facility] 06/10/21 at 2245, Routine iohexol 2020-08- No [id number] 120mL 120 mL, Univers (OMNIPAQUE 0-25 10-25 Intravenou it y of 350 03:15: 03:05 s, ONCE, 1 [place] BULK-100 00 :00 dose, On Medical mL) [facility] injection 06/10/21 120 mL at 2215, Routine NaCl 0.9% 2020-08- No 500mL at 999 Univ ers (NS) bolus 0-25 10-25 mL/hr, 500 it y of infusion 02:45: 04:10 mL, IV [place] 500 mL 00 :00 Infusion, Medical ONCE, 1 Branch dose, On 06/10/21 at 2145, STAT pantoprazol 2018-08 Yes [id number] 40mg Take 1 Univers e 40 mg EC 1-21 tablet by ity of tablet 00:00: mouth [place] 00 daily. Medical Branch ibuprofen 2018-08 Yes [id number] 800mg Take 1 Univers 800 mg 1-21 tablet by ity of tablet 00:00: mouth [place] 00 every 6 Medical (six) Branch hours as needed for Pain (scale 4-6). pantoprazol 2018-08 Yes [id number] 40mg Take 1 Univers e 40 mg EC 1-21 tablet by ity of tablet 00:00: mouth [place] 00 daily. Medical Branch ibuprofen 2018-08 Yes [id number] 800mg Take 1 Univers 800 mg 1-21 tablet by ity of tablet 00:00: mouth [place] 00 every 6 Medical (six) Branch hours as needed for Pain (scale 4-6). Immunizations Ordered Filled Immunization Date Status Comments [facility] Immunization Name Name Pneumococcal 2019-06-02 Completed [place] o f Polysaccharide, 00:00:00 [facility] ical PPSV23 (PNEUMOVAX) Branch TDAP 2019-06-02 Completed [facility] 00:00:00 [facility] Pneumococcal 2019-06-02 Completed [place] o f Polysaccharide, 00:00:00 [place] Med ical PPSV23 (PNEUMOVAX) Branch TDAP 2019-06-02 Completed University of 00:00:00 [facility] Influenza Virus 2019-05-27 Completed Universit y of Vaccine Quad .5 mL 00:00:00 [place] Medical IM 6+ MO Branch Influenza Virus 2019-05-27 Completed Universit y of Vaccine [place] .5 mL 00:00:00 [place] Medical IM 6+ MO Branch Vital Signs Vital Name Observation Time Observation Value Comments Source Systolic blood 2021-06-11 04:00:00 145 mm[Hg] Univer [facility] Diastolic blood 2021-06-11 04:00:00 97 mm[Hg] [facility] 2021-06-11 04:00:00 98 /min [facility] Respiratory rate 2021-06-11 04:00:00 28 /min [facility] Oxygen saturation in 2021-06-11 04:00:00 96 /min [facility] Arterial blood by [facility] Pulse oximetry Branch Body height 2021-06-11 02:43:00 167.6 cm [facility] Body weight 2021-06-11 02:43:00 120.203 kg [facility] BMI 2021-06-11 02:43:00 42.77 kg/m2 [facility] Body temperature 2021-06-11 02:41:00 35.78 Ingrid [facility] Procedures Procedure Date / Time Performed Performing Clinician Humaira e PAMELAID-19 (ID NOW 2021-06-11 03:52:00 Xander Mcmahon [facility] RAPID TESTING) [facility] CT ABDOMEN PELVIS W 2021-06-11 03:09:28 Xander Mcmahon [facility] CONTRAST [facility] CBC WITH DIFF 2021-06-11 02:48:00 Xander Mcmahon o f [facility] LIPASE 2021-06-11 02:48:00 Singer [facility] o [facility] COMP. METABOLIC PANEL 2021-06-11 02:48:00 [facility] [place] [facility] ([id number]) Medical [place] CONSENT/REFUSAL FOR 2021-06-11 02:34:10 Doctor Unassigned, No Un [facility] DIAGNOSIS AND Name Medical Branch TREATMENT Encounters Start End Encounter Admission Attending Care Care Encounter Source Date/Time Date/Time Type Type Clinicians Facility Department ID 2021-06-19 Emergency [facility] [id number] Univers 09:14:32 ity of [facility] 2021-06-18 Emergency [facility] [id number] Univers 07:21:37 ity [facility] 2021-06-12 2021-06-12 Transition [facility] [id number] Univers 00:00:00 00:00:00 of Care Hiram Solo [id number] ity [facility] [id number] [id number] [facility] 403 Branch 2021-06-10 2021-06-11 Hospital Xander Mcmahon [facility] [id number] Univers 21:36:00 00:04:00 Encounter Landry Sigala [id number] ity of [place] [id number] [id number] [facility] 084 Branch 2021-03-06 2021-03-06 Outpatient LAUREN CHAMPION [facility] [id number] Univers 14:00:00 14:00:00 [id number] 2021-03-06 2021-03-06 Outpatient LAUREN CHAMPION [facility] [id number] Univers 14:00:00 14:00:00 [facility] Results Test Description Test Time Test Comments Results Result Comments Source COMP. METABOLIC PANEL (89219) 2021-06-11 03:40:15 Test Item Value Reference Range Interpretation Comme nts NA (test code = 2275229043) 139 mmol/L 135-145 K (test code = 6900158554) 4.2 mmol/L 3.5-5.0 CL (test code = 9194436833) 103 mmol/L 98-108 CO2 TOTAL (test code = 3968171883) 25 mmol/L 23-31 AGAP (test code = 2609850030) 2-16 BUN (test code = 8640546715) 22 mg/dL 7-23 GLUCOSE (test code = 1516346159) 130 mg/dL 70-110 H CREATININE (test code = 1.04 mg/dL 0.60-1.25 7254605462) TOTAL BILI (test code = 0.7 mg/dL 0.1-1.0 0222042238) CALCIUM (test code = 7257921415) 10.8 mg/dL 8.6-10.6 H T PROTEIN (test code = 8582761793) 8.1 g/dL 6.3-8.2 ALBUMIN (test code = 1728200204) 4.6 g/dL 3.5-5.0 ALK PHOS (test code = 3578202420) 58 U/L 34-122 ALTv (test code = 1742-6) 28 U/L 5-50 AST(SGOT) (test code = 9391807345) 30 U/L 13-40 eGFR (test code = 4362771404) mL/min/1.73m2 RANCHO (test code = RANCHO) Association [...] tests). Lab Interpretation (test code = Abnormal 70308-4) [facility] Test Item Value Reference Range Interpretation Comments LIPASE (test code = 9225753578) 87 U/L 0-220 Lab Interpretation (test code = Normal 69247-4) [facility] [id number] 03:00:34 Test Item Value Reference Range Interpretation Comments WBC (test code = See_Comment H [Automated 0690-2) message] The sy stem which generated this [...] RDW-SD (test code = 44.8 fL 38.5-51.6 26438-3) RDW-CV (test code = 13.7 % 12.1-15.4 788-0) PLT (test code = See_Comment [Automated 777-3) message] The sy stem which generated this result transmitted reference range : 150 - 328 10*3/ ?L. The reference r michael was not used to interpret this result as normal/abnormal . MPV (test code = 10.8 fL 9.8-13.0 12088-6) NRBC/100 WBC (test See_Comment [Automat ed code = 5808968988) message] The system which generated this result transmitted reference range : 0.0 - 10.0 /100 WBCs. The refer ence range was not u sed to interpret th is result as normal/abnormal . NRBC x10^3 (test code <0.01 See_Comment [Auto mated = 4686056676) message] The s ystem which generated this result transmitted reference range : 10*3/?L. The reference range was not used to interpret this result as normal/abnormal . GRAN MAT (NEUT) % 78.0 % (test code = 770-8) IMM GRAN % (test code 0.60 % = 8636217093) LYMPH % (test code = 12.5 % 736-9) MONO % (test code = 6.8 % 5905-5) EOS % (test code = 1.4 % 713-8) BASO % (test code = 0.7 % 706-2) GRAN MAT x10^3(ANC) 8.74 10*3/uL 1.99-6.95 H (test code = 1752187335) IMM GRAN x10^3 (test 0.07 10*3/uL 0.00-0.06 H code = 1250628148) LYMPH x10^3 (test code 1.40 10*3/uL 1.09-3.23 = 731-0) MONO x10^3 (test code 0.76 10*3/uL 0.36-1.02 = 742-7) EOS x10^3 (test code = 0.16 10*3/uL 0.06-0.53 711-2) BASO x10^3 (test code 0.08 10*3/uL 0.01-0.09 = 704-7) Lab Interpretation Abnormal (test code = 78409-5) [facility]"
[2021-09-02] MEDS ORDERED: ONDANSETRON 4 MG/2 ML VIAL ONE ×2 (07:58→11:12)
[2021-09-02] MEDS ORDERED: MORPHINE 4 MG/ML SYR ONE (07:58)
[2021-09-02 08:04] LABS: Absolute Lymphocytes (CBC) 1.1 K/uL (0.7-4.9); Hematocrit 45.7 % (39.6-49.0); Lymphocytes % 9.2 % (15.3-44.8); MPV 8.6 fL (7.6-11.3); RBC Red Blood Cell Count 5.29 M/uL (4.33-5.43)
[2021-09-02 08:26] LABS: Albumin 3.6 g/dL (3.4-5.0); Bilirubin Direct 0.4 mg/dL (0-0.2); Potassium 3.6 mmol/L (3.5-5.1); Protein, Total 8.5 g/dL (6.4-8.2)
--- NOTE | 2021-09-02 08:58 | RAD REPORT ---
EXAM DESCRIPTION: CTAbdomen Pelvis W Contrast - 09/02/2021 8:31 am CLINICAL HISTORY: Abdominal pain. Umbilical hernia;Abd pain COMPARISON: Thorax Wo Con dated 01/23/2019; Abdomen Pelvis Wo Contrast dated 01/23/2019 TECHNIQUE: Biphasic CT imaging of the abdomen and pelvis was performed with 100 ml non-ionic IV cont rast. All CT scans are performed using dose optimization technique as appropriate and may include automated exposure control or mA/KV adjustment according to patient size. FINDINGS: Multiple small pulmonary nodules are seen in the lung bases. Mild diffuse fatty liver is present. Significant distention of the stomach with fluid. The spleen, pa ncreas, adrenal glands and kidneys within normal limits. Umbilical hernia is present containing single small bowel loop. There is fluid in the hernia sac like ly indicating hernia incarceration. Moderately distended small bowel loops are present throughout the abdomen compatible with moderate mechanical bowel obstruction. Mild sigmoid diverticulosis. The appe ndix is normal. No free air, significant free fluid or abscess. No evidence of significant lymphadeno scooter. Moderate lumbar and lumbosacral degenerative changes. IMPRESSION: Moderate mechanical bowel obstruction is present caused by moderate-sized incarcerated u mbilical hernia containing small bowel loop.
--- NOTE | 2021-09-02 09:18 | EDPHYS ---
Physician Documentation [facility] Name: Asher Gomez Age: 41 yrs Sex: Male : 1980 Arrival Date: 09/02/2021 Time: 06:50 Bed 2 Private MD: ED Physician Jesus Kelly HPI: 09/02 07:46 This 41 yrs old Male presents to ER via Wheelchair with complaints of Hernia bulging kdr and pain. 07:46 The patient presents with abdominal pain in the periumbilical area. abdominal kdr distention that is diffuse. Onset: The symptoms/episode began/occurred gradually, 4 day(s) ago. The symptoms do not radiate. Associated signs and symptoms: Pertinent positives: constipation, nausea, Pertinent negatives: diarrhea, dysuria, fever, headache, hematuria, palpitations, shortness of breath, vomiting blood. The symptoms are described as achy, constant, crampy. Modifying factors: The symptoms are alleviated by nothing, the symptoms are aggravated by movement, touching the area, walking. Severity of pain: At its worst the pain was moderate severe just prior to arrival, in the emergency department the pain is unchanged. Patient states he has had abdominal pain like this off and on for the last 2 months. For the last 4 days he has not had a bowel movement and the pain has been more intense. He indicated that he is been able to push the hernia back in intermittently but not for the last 2 days. The patient has not recently seen a physician. Historical: - Allergies: 07:26 No Known Allergies; iw - PMHx: 07:26 Asthma; Bipolar disorder; Diabetes; Hypertension; Sleep Apnea; iw - Immunization history:: Client reports receiving the 2nd dose of the Covid vaccine, Pneumococcal vaccine is not up to date, Flu vaccine is not up to date. - Social history:: Smoking status: Patient denies any tobacco usage or history of. ROS: 07:46 Constitutional: Negative for fever, chills, and weight loss, Eyes: Negative for injury, kdr pain, redness, and discharge, ENT: Negative for injury, pain, and discharge, Neck: Negative for injury, pain, and swelling, Cardiovascular: Negative for chest pain, palpitations, and edema, Respiratory: Negative for shortness of breath, cough, wheezing, and pleuritic chest pain, Back: Negative for injury and pain, : Negative for injury, bleeding, discharge, and swelling, MS/Extremity: Negative for injury and deformity, Skin: Negative for injury, rash, and discoloration, Neuro: Negative for headache, weakness, numbness, tingling, and seizure activity. Psych: Negative for depression, anxiety, suicide ideation, homicidal ideation, and hallucinations, Allergy/Immunology: Negative for hives, rash, and allergies, Endocrine: Negative for neck swelling, polydipsia, polyuria, polyphagia, and marked weight changes, Hematologic/Lymphatic: Negative for swollen nodes, abnormal bleeding, and unusual bruising. 07:46 Abdomen/GI: Positive for abdominal pain, nausea, constipation, Negative for bowel incontinence, flatulence. Exam: 07:46 Constitutional: This is a well developed, well nourished patient who is awake, alert, kdr and in mild to moderate distress. Head/Face: Normocephalic, atraumatic. Eyes: Pupils equal round and reactive to light, extra-ocular motions intact. Lids and lashes normal. Conjunctiva and sclera are non-icteric and not injected. Cornea within normal limits. Periorbital areas with no swelling, redness, or edema. Neck: Trachea midline, no thyromegaly or masses palpated, and no cervical lymphadenopathy. Supple, full range of motion without nuchal rigidity, or vertebral point tenderness. No Meningismus. Chest/axilla: Normal chest wall appearance and motion. Nontender with no deformity. No lesions are appreciated. Cardiovascular: Regular rate and rhythm with a normal S1 and S2. No gallops, murmurs, or rubs. Normal PMI, no JVD. No pulse deficits. Respiratory: Lungs have equal breath sounds bilaterally, clear to auscultation and percussion. No rales, rhonchi or wheezes noted. No increased work of breathing, no retractions or nasal flaring. Back: No spinal tenderness. No costovertebral tenderness. Full range of motion. Skin: Warm, dry with normal turgor. Normal color with no rashes, no lesions, and no evidence of cellulitis. MS/ Extremity: Pulses equal, no cyanosis. Neurovascular intact. Full, normal range of motion. Neuro: Awake and alert, GCS 15, oriented to person, place, time, and situation. Cranial nerves II-XII grossly intact. Motor strength 5/5 in all extremities. Sensory grossly intact. Cerebellar exam normal. Normal gait. Psych: Awake, alert, with orientation to person, place and time. Behavior, mood, and affect are within normal limits. 07:46 Abdomen/GI: Inspection: distension, that is mild, obese Bowel sounds: diminished, in all quadrants, Palpation: soft, moderate abdominal tenderness, in the umbilical area. Vital Signs: 07:24 BP 142 / 89; Pulse 95; Resp 14; Temp 97.2; Pulse Ox 98% on R/A; Weight 117.93 kg; iw Height 5 ft. 6 in. (167.64 cm); 07:51 BP 136 / 82; Pulse 83; Resp 18; Pulse Ox 100% ; Pain 8/10; jh6 09:15 BP 140 / 93; Pulse 96; Resp 17 S; Pulse Ox 96% on R/A; jd3 10:30 BP 105 / 64; Pulse 82; Resp 18 S; Pulse Ox 98% on R/A; jd3 07:24 Body Mass Index 41.96 (117.93 kg, 167.64 cm) iw MDM: 07:46 Data reviewed: vital signs, nurses notes, lab test result(s), radiologic studies. kdr Counseling: I had a detailed discussion with the patient and/or guardian regarding: the historical points, exam findings, and any diagnostic results supporting the discharge/admit diagnosis, lab results, radiology results. 09:17 Patient medically screened. kdr 09/02 07:44 Order name: Basic Metabolic Panel; Complete Time: 08:51 kdr 09/02 07:44 Order name: CBC with Diff; Complete Time: 08:51 kdr 09/02 07:44 Order name: Hepatic Function; Complete Time: 08:51 kdr 09/02 07:44 Order name: Lipase; Complete Time: 08:51 kdr 09/02 07:46 Order name: CT Abd/Pelvis - IV Contrast Only; Complete Time: 09:05 kdr 09/02 09:25 Order name: SARS-COV-2 RT PCR (Document "Date of Onset" if Symptomatic) eb 09/02 07:44 Order name: IV; Complete Time: 07:58 jd3 09/02 07:44 Order name: Labs collected and sent; Complete Time: 07:58 kdr Administered Medications: 08:00 Drug: Zofran (Ondansetron) 4 mg Route: IVP; Site: right antecubital; jh6 09:00 Follow up: Response: No adverse reaction jd3 08:01 Drug: morphine 4 mg Route: IVP; Site: right antecubital; jh6 09:00 Follow up: Response: No adverse reaction; RASS: Alert and Calm (0) jd3 09:27 Drug: Zosyn (piperacillin-tazobactam) 3.375 grams Route: IVPB; Infused Over: 60 mins; jd3 Site: right antecubital; Disposition Summary: 09/02/21 09:17 Hospitalization Ordered Hospitalization Status: Inpatient Admission kdr Provider: Stuart Wiley Location: Telemetry/MedSurg (Inpatient) kdr Condition: Fair kdr Problem: new kdr Symptoms: have improved kdr Bed/Room Type: Standard kdr Room Assignment: kdr Diagnosis - Other abdominal pain - Periumbilical kdr - Mechanical small bowel obstruction secondary to incarcerated bowel in the umbilical kdr hernia Forms: - Medication Reconciliation Form kdr - SBAR form kdr Signatures: Dispatcher [employer] EDJesus Phillips MD MD kdr Martha Romero RN RN iw Davies, Jonathon, RN RN jd3 Lani Newman RN RN jh6
--- NOTE | 2021-09-02 09:18 | ER ---
Nurse's Notes [facility] Name: Asher Gomez Age: 41 yrs Sex: Male : 1980 Arrival Date: 09/02/2021 Time: 06:50 Bed 2 Private MD: Diagnosis: Other abdominal pain-Periumbilical;Mechanical small bowel obstruction secondary to incarcerated bowel in the umbilical hernia Presentation: 09/02 07:24 Chief complaint: Patient states: has a bulging hernia and it's really tender and has iw gas build up and has acid reflux, was vomiting earlier. Coronavirus screen: Client presents with at least one sign or symptom that may indicate coronavirus-19. Ebola Screen: Patient negative for fever greater than or equal to 101.5 degrees Fahrenheit, and additional compatible Ebola Virus Disease symptoms Patient denies exposure to infectious person. Patient denies travel to an Ebola-affected area in the 21 days before illness onset. No symptoms or risks identified at this time. Initial Sepsis Screen: Does the patient meet any 2 criteria? No. Patient's initial sepsis screen is negative. Does the patient have a suspected source of infection? No. Patient's initial sepsis screen is negative. Risk Assessment: Do you want to hurt yourself or someone else? Patient reports no desire to harm self or others. Onset of symptoms was January 24, 2021. 07:24 Method Of Arrival: Wheelchair iw 07:25 Acuity: HERMELINDO 3 iw Historical: - Allergies: 07:26 No Known Allergies; iw - PMHx: 07:26 Asthma; Bipolar disorder; Diabetes; Hypertension; Sleep Apnea; iw - Immunization history:: Client reports receiving the 2nd dose of the Covid vaccine, Pneumococcal vaccine is not up to date, Flu vaccine is not up to date. - Social history:: Smoking status: Patient denies any tobacco usage or history of. Screenin:54 Abuse screen: Denies threats or abuse. Nutritional screening: No deficits noted. 6 Tuberculosis screening: No symptoms or risk factors identified. Fall Risk None identified. Assessment: 07:49 General: Appears uncomfortable, obese, unkempt, Behavior is calm, cooperative. Pain: 6 Complains of pain in umbilical area Pain currently is 8 out of 10 on a pain scale. Quality of pain is described as shooting, gnawing, Pain began 2-3 days ago. Is continuous, Aggravated by exercise, increased activity, Noted to be resistant to movement. GI: Abdomen is round obese, Abdomen is tender to palpation in umbilical area Reports upper abdominal pain. 09:15 Reassessment: Patient appears in no apparent distress at this time. No changes from jd3 previously documented assessment. Patient and/or family updated on plan of care and expected duration. Pain level reassessed. Patient is alert, oriented x 3, equal unlabored respirations, skin warm/dry/pink. 10:30 Reassessment: Patient appears in no apparent distress at this time. No changes from jd3 previously documented assessment. Patient and/or family updated on plan of care and expected duration. Pain level reassessed. Patient is alert, oriented x 3, equal unlabored respirations, skin warm/dry/pink. pt taken to surgery by Karon CARDENAS. Vital Signs: 07:24 BP 142 / 89; Pulse 95; Resp 14; Temp 97.2; Pulse Ox 98% on R/A; Weight 117.93 kg; iw Height 5 ft. 6 in. (167.64 cm); 07:51 BP 136 / 82; Pulse 83; Resp 18; Pulse Ox 100% ; Pain 8/10; jh6 09:15 BP 140 / 93; Pulse 96; Resp 17 S; Pulse Ox 96% on R/A; jd3 10:30 BP 105 / 64; Pulse 82; Resp 18 S; Pulse Ox 98% on R/A; jd3 07:24 Body Mass Index 41.96 (117.93 kg, 167.64 cm) iw ED Course: 06:50 Patient arrived in ED. wm 07:22 Jesus Kelly MD is Attending Physician. kdr 07:26 Triage completed. iw 07:45 Lani Newman, THERESA is Primary Nurse. jh6 07:54 Arm band placed on left wrist. jh6 07:54 Bed in low position. Call light in reach. Side rails up X 1. jh6 07:59 Initial lab(s) drawn, by me, sent to lab. Inserted saline lock: 20 gauge in right mb4 antecubital area, using aseptic technique. Blood collected. 08:31 CT Abd/Pelvis - IV Contrast Only In Process Unspecified. EDMS 09:14 Stuart Wiley is Hospitalizing Provider. kdr 09:37 SARS-COV-2 RT PCR (Document "Date of Onset" if Symptomatic) Sent. [facility] 09:38 COVID swab sent to lab. [facility] 10:30 No provider procedures requiring assistance completed. Patient admitted, IV remains in j place. Administered Medications: 08:00 Drug: Zofran (Ondansetron) 4 mg Route: IVP; Site: right antecubital; 6 09:00 Follow up: Response: No adverse reaction j 08:01 Drug: morphine 4 mg Route: IVP; Site: right antecubital; [facility] 09:00 Follow up: Response: No adverse reaction; RASS: Alert and Calm (0) j 09:27 Drug: Zosyn (piperacillin-tazobactam) 3.375 grams Route: IVPB; Infused Over: 60 mins; [facility] Site: right antecubital; Outcome: 09:17 Decision to Hospitalize by Provider. kdr 11:00 Patient left the ED. Signatures: Dispatcher [employer] EDMS Jesus Kelly MD MD [facility] Martha Romero RN RN Yelena Paez 5 Paulo Garcia RN RN jd3 Allison Greene 4 Meghan Madrigal Jennifer, RN RN jh6 Corrections: (The following items were deleted from the chart) 07:26 07:24 Onset of symptoms was January 26, 2021 [facility]
[2021-09-02] MEDS ORDERED: PIPERACIL/TAZO 3.375 GM VIAL IV ONE (09:19)
[2021-09-02] MEDS ORDERED: NA CHLORIDE 0.9% 100 ML ONE (09:19)
[2021-09-02] MEDS ORDERED: Ringers Lactate 1,000 ML IV ONE (10:24)
[2021-09-02] MEDS ORDERED: NA CIT/CITRIC AC 30 ML ORAL UDC ONE (10:25)
[2021-09-02] MEDS ORDERED: SUCCINYLCHOLINE 20 MG/ML (10 ML) IV ONE (10:32)
[2021-09-02] MEDS ORDERED: propofoL 200 MG/20 ML VIAL IV ONE (10:38)
--- NOTE | 2021-09-02 10:38 | P.HP ---
Certification for Inpatient Patient admitted to: Inpatient With expected LOS: >2 Midnights Practitioner: I am a practitioner with admitting privileges, knowledge of patient current condition, hospital course, and medical plan of care. Services: Services provided to patient in accordance with Admission requirements found in Title 42 Section 412.3 of the Code of Federal Regulations Patient History Date of Service: 09/02/21 Reason for admission: Abdominal pain History of Present Illness: 41-year-old gentleman with a history of obesity, obstructive sleep apnea, substance abuse, umbilical hernia presented to the ED with a complaint of abdominal pain of sudden onset. Patient was somnolent after receiving IV morphine for pain and could not provide any history. CT abdomen and pelvis done in the ED demonstrated incarcerated umbilical hernia with small bowel obstruction. General surgery Dr. Paez contacted who is planning on emergent surgery. Patient admitted for further management. Allergies No Known Allergies Allergy (Verified 01/23/19 04:10) Home Medications: Pantoprazole [Protonix Tab*] 40 mg PO DAILYAC #30 tab 01/25/19 - Past Medical/Surgical History Diabetic: No -: obesity -: illegal drug abuse -: History of depression -: Sleep apnea noncompliant - Social History Alcohol use: No Caffeine use: Yes Place of Residence: Home Review of Systems is unable to be obtained Physical Examination - Physical Exam General: In no apparent distress, Other (Somnolent) HEENT: Atraumatic, PERRLA, Mucous membr. moist/pink, EOMI Neck: Supple, JVD not distended Respiratory: Clear to auscultation bilaterally, Normal air movement Cardiovascular: No edema, Regular rate/rhythm, Normal S1 S2, No murmurs Capillary refill: <2 Seconds Gastrointestinal: Normal bowel sounds, Other (Umbilical hernia mid abdomen), Distended (Mildly distended), Tenderness (Mid abdomen) Musculoskeletal: No swelling, No tenderness Integumentary: No rashes, No erythema, No cyanosis Neurological: Normal strength at 5/5 x4 extr, Other (Somnolent) Lymphatics: No axilla or inguinal lymphadenopathy - Studies Laboratory Data (last 24 hrs) 09/02/21 07:58: WBC 11.50 H, Hgb 14.9, Hct 45.7, Plt Count 317 09/02/21 07:58: Sodium 141, Potassium 3.6, BUN 18, Creatinine 0.93, Glucose 124 H, Total Bilirubin 2.0 H, AST 15, ALT 25, Alkaline Phosphatase 60, Lipase 64 L Assessment and Plan - Problems (Diagnosis) (1) Drug-induced encephalopathy Current Visit: Yes Status: Acute (2) Small bowel obstruction Current Visit: Yes Status: Acute (3) Incarcerated hernia Current Visit: Yes Status: Acute - Plan Admit to the medical floor. Patient planned for emergent surgery. Dr. Paez contacted. IV morphine as needed for pain Empiric IV Zosyn. IV hydration with normal saline Would recommend CPAP during sleep. - Advance Directives Does patient have a Living Will: No Does patient have a Durable POA for Healthcare: No
[2021-09-02] MEDS ORDERED: ROCURONIUM 50 MG/5 ML VIAL IV ONE (10:39)
[2021-09-02] MEDS ORDERED: LIDOCAINE 2% MPF 5 ML VIAL ONE (10:39)
[2021-09-02] MEDS ORDERED: FENTANYL CITR 100 MCG/2 ML ONE ×2 (10:42→11:46)
[2021-09-02] MEDS ORDERED: dexAMETHasone 10 MG/ML VIAL ONE (11:11)
[2021-09-02] MEDS ORDERED: KETOROLAC 30 MG/ML INJ ONE (11:11)
[2021-09-02] MEDS ORDERED: EPHEDRINE SULF 50 MG/ML VIAL ONE (11:13)
[2021-09-02] MEDS ORDERED: GLYCOPYRROLATE 0.2 MG/ML SYR ONE (11:50)
[2021-09-02] MEDS ORDERED: NEOSTIGMINE 1 MG/ML -5 ML ONE (11:50)
[2021-09-02] MEDS: PIPER TAZO 3.375 GM in NA CHLORIDE 0.9% 100 ML IV SCH ×2 (12:00→22:25)
[2021-09-02] MEDS ORDERED: MORPHINE 2 MG/ML SYR IV PRN (12:10)
[2021-09-02] MEDS: NA CHLORIDE 0.9% 1,000 ML IV SCH ×2 (12:10→22:10)
[2021-09-02] MEDS: INSULIN -REGULAR HUMAN 50 UNIT/0.5 ML ML SQ SCH ×2 (12:10→18:00)
--- NOTE | 2021-09-02 12:41 | P.BOP ---
Preoperative diagnosis: small bowel obtruction, incarcerated umbilical hernia Postoperative diagnosis: same plus intrabdominal adhesions Primary procedure: Exploratory laparotomy, lysis of adhesions, Secondary procedure: repair of incarcerated umbilical hernia Estimated blood loss: <20cc Specimen: sac Findings: incarcerated but appeared viable small bowel Anesthesia: General Complications: None Transferred to: Recovery Room Condition: Good
--- NOTE | 2021-09-02 12:42 | CON ---
Date of Consultation: 09/02/2021 History Of Present Illness: This is an emergent consult is the case of a 41-year-old patient complai kelli of abdominal pain for at least 4 days of duration. He states he has a hernia for the last 2 yea rs in that region, but in the last few days been hurting and this morning, he could not take it anymo re and he came to the ER. It is associated with nausea and vomiting. The patient found to have an i ncarcerated, possible strangulated umbilical hernia with a small bowel obstruction, and the area of o bstruction located at the area of the hernia. The patient apparently has a history of sleep apnea, a lthough he still does not take any medications; also substance abuse; obesity; depression. Past Medical History: Legal drug abuse, obesity, what he claimed may be manic-depressive sleep apnea . Social History: History of legal drug abuse. Caffeine, no alcohol. Family History: Noncontributory. Review of Systems: See H and P, nausea, vomiting, abdominal pain. Review of systems 10 points, otherwise, unremarkable. Physical Examination: General: Patient is awake, alert. HEENT: Pupils are equal and reactive. Anicteric. Neck: Supple. Chest: Clear. Abdomen: Distended, tender. There is a large bulging of the umbilical region consistent with an inc arcerated possibly strangulated umbilical hernia with the skin discoloration. Tender. No guarding. No rebound. Extremities: Good capillary refill. Laboratory Data: Blood work shows WBC count of 11.5 with hemoglobin of 14.9, potassium 3.6, lipase 6 4. CAT scan of the abdomen and pelvis interpreted by Dr. Echavarria as small bowel obstruction with inc arcerated umbilical hernia containing small bowel loops. Assessment: This is a 41-year-old patient with small bowel obstruction and incarcerated possible str angulated umbilical hernia. Benefits, alternatives, and risks of emergent repair of a hernia, possib le laparotomy, possible resection fully explained to the patient, which include, but not limited to, infection, bleeding, damage to adjacent structures as complications, LA, and even . He also und erstands this may not relieve the symptoms. He might need more than one surgical intervention. He u nderstood, signed a consent. The patient was emergently brought to the operating room. NATALIIA/TARIK Voice ID: [id number] Report ID: [id number]
[2021-09-02] MEDS ORDERED: MORPHINE 4 MG/ML SYR IV PRN (12:57)
[2021-09-02] MEDS ORDERED: HYDROCODONE/APAP 5/325 MG TAB PO PRN (12:57)
[2021-09-02] MEDS ORDERED: NA CHLORIDE 0.9% 1,000 ML ONE (14:18)
[2021-09-02 17:10] VITALS: BMI 41.9
[2021-09-02] MEDS ORDERED: KCL 20 MEQ/100 mL IVPB 20 MEQ/100 ML BAG IV SCH (21:00)
--- NOTE | 2021-09-02 23:18 | OP ---
Date of Procedure: 09/02/2021 Surgeon: Pete Paez MD Preoperative Diagnoses: Small bowel obstruction, incarcerated umbilical hernia, abdominal pain. Postoperative Diagnoses: Small bowel obstruction, incarcerated umbilical hernia, abdominal pain, int raabdominal adhesions. Procedures: Exploratory laparotomy, lysis of adhesions, repair of incarcerated umbilical hernia. Finding: Incarcerated bowel present after full visualization seemed to be viable. Anesthesia: General plus local. Complications: None. Specimen: Hernia sac. Estimated Blood Loss: Less than 20 cc. Indication For Procedure: This is the case of a male, who comes to us today with intractable abdomin al pain with incarcerated umbilical hernia and also small bowel obstruction. The benefits and risks of a repair of an incarcerated umbilical hernia with possible laparotomy, possible bowel resection we re fully explained, which include, but not limited to infection, bleeding, damage to adjacent structu res, anesthesia complication, recurrence, NV, and even . He also understands this may not relie ve the symptoms. He might need more than one surgical intervention. He understood, signed a consent . Description Of Procedure: The patient was emergently brought to the operating room, placed in supine position. Anesthesia was done without complication. A time-out was called. Abdomen was prepped an d draped in a sterile fashion. Midline incision was made extending from the umbilical area and the v entral region. Incision was carried down to be able to visualize this hernia sac. We opened the her rusty sac, noted to have incarcerated bowel, some adhesions holding his bowel, so we proceeded to caref ully with the help of the LigaSure do the lysis of adhesions and then we were able to run the bowel w ith still the area of the obstruction, the transition point. Seemed to be viable. So, we retracted carefully the bowel back into the abdominal cavity, proceeded to remove the hernia sac, clean the fas cial edges. After several minutes, we went there once again, ran the bowel once again. Noticed the same area and is still viable. So, I believe in this case, we will leave the bowel intact and see ho w he does clinically. There is always a possibility to come back if the bowel does not function, but right now it looks viable. So, area was irrigated. The area of the lysis of adhesions was checked. At that moment, we proceeded to approximate the fascial edges where #1 Prolene [id number] fash ioned multiple times. Area was irrigated and then after that I proceeded to close the subcutaneous t issue with 3-0 chromic and skin with irma. Sponge count, instrument counts were correct. Patient tolerated the procedure well. Patient was sent to recovery in stable condition. NATALIIA/TARIK Voice ID: [id number] Report ID: [id number]
[2021-09-03] MEDS: NA CHLORIDE 0.9% 1,000 ML IV SCH ×2 (00:23→10:10)
[2021-09-03] MEDS: PIPER TAZO 3.375 GM in NA CHLORIDE 0.9% 100 ML IV SCH ×3 (03:52→20:00)
[2021-09-03 05:47] LABS: Absolute Lymphocytes (CBC) 0.6 K/uL (0.7-4.9); Hematocrit 38.4 % (39.6-49.0); Lymphocytes % 5.1 % (15.3-44.8); RBC Red Blood Cell Count 4.38 M/uL (4.33-5.43)
[2021-09-03 06:00] LABS: ALT/SGPT 24 U/L (12-78); AST/SGOT 16 U/L (15-37); Albumin 2.8 g/dL (3.4-5.0); Alkaline Phosphatase 48 U/L (45-117); BUN Blood Urea Nitrogen 19 mg/dL (7-18); Bicarbonate 28 mmol/L (21-32); Bilirubin Total 1.1 mg/dL (0.2-1.0); Glucose Level 108 mg/dL (74-106); Magnesium 2.7 mg/dL (1.8-2.4); Phosphorus 3.4 mg/dL (2.5-4.9); Potassium 4.7 mmol/L (3.5-5.1); Sodium Level 140 mmol/L (136-145)
[2021-09-03] MEDS: INSULIN -REGULAR HUMAN 50 UNIT/0.5 ML ML SQ SCH ×4 (06:00→17:16)
[2021-09-03 09:01] LABS: Blood Morphology Comment NOT SEEN (NOT SEEN); Platelet Estimate ADEQ
[2021-09-03] MEDS: ENOXAPARIN 40 MG/0.4 ML SQ SCH (10:11)
--- NOTE | 2021-09-03 12:45 | PN ---
Date of Progress Note: 09/03/2021 Diagnosis: Bowel obstruction, incarcerated ventral hernia. Subjective: The patient is doing better. Today, we started to give him some fluid. We have to matthieu mber that his bowel was incarcerated. At one point, we have to determine the viability of it, so margaret n though I did not have to remove the bowel, we have to consider this bowel was trapped for some time , may have some swelling present. Today, we started clear liquid diet and started with. Objective: Abdomen: Soft and depressible. Intact surgical site. Bowel sounds positive. Extremities: Good capillary refill. Plan: We are going to advance diet slowly and then by tomorrow morning, if he is tolerating diet, we should be able to send him home. We encouraged ambulation, incentive spirometry. HM/MODL Voice ID: [id number] Report ID: [id number]
--- NOTE | 2021-09-03 15:40 | P.PN ---
Subjective Date of Service: 09/03/21 Chief Complaint: Abdominal pain Patient denies any pain. He states he has been passing gas. Physical Examination - Vital Signs Temperature: 97.3 F Blood Pressure: 136/71 Pulse: 55 Respirations: 16 Pulse Ox (%): 97 - Physical Exam General: Alert, In no apparent distress, Oriented x3 HEENT: Mucous membr. moist/pink Neck: JVD not distended Respiratory: Clear to auscultation bilaterally, Normal air movement Cardiovascular: No edema, Regular rate/rhythm, Normal S1 S2 Gastrointestinal: Hypoactive, Soft and benign, Non-distended Musculoskeletal: No swelling Integumentary: No rashes Neurological: Normal strength at 5/5 x4 extr Assessment And Plan - Current Problems (Diagnosis) (1) Drug-induced encephalopathy Current Visit: Yes Status: Acute (2) Small bowel obstruction Current Visit: Yes Status: Acute (3) Incarcerated hernia Current Visit: Yes Status: Acute - Plan Status post hernia reduction and repair. Patient clinically improved, denies any symptoms. States he is hungry. Patient started on clear liquid diet. Dr. Paez is following Pain medication as needed. Empiric IV Zosyn. Discontinue antibiotics tomorrow Discontinue IV fluid CPAP during sleep.
[2021-09-04] MEDS: PIPER TAZO 3.375 GM in NA CHLORIDE 0.9% 100 ML IV SCH ×2 (05:01→12:04)
[2021-09-04] MEDS: INSULIN -REGULAR HUMAN 50 UNIT/0.5 ML ML SQ SCH ×2 (05:05)
[2021-09-04 05:44] LABS: Hematocrit 37.4 % (39.6-49.0); Lymphocytes % 23.8 % (15.3-44.8); MPV 8.9 fL (7.6-11.3); RBC Red Blood Cell Count 4.27 M/uL (4.33-5.43)
[2021-09-04 06:05] LABS: BUN Blood Urea Nitrogen 13 mg/dL (7-18); Bicarbonate 28 mmol/L (21-32); Glucose Level 84 mg/dL (74-106); Potassium 3.8 mmol/L (3.5-5.1); Sodium Level 140 mmol/L (136-145)
--- NOTE | 2021-09-04 06:24 | P.PN ---
Date of Service: 09/04/21
[2021-09-04] MEDS: ENOXAPARIN 40 MG/0.4 ML SQ SCH (09:00)
[2021-09-04 09:43] VITALS: O2SAT 99
[2021-09-04] MEDS ORDERED: GLUCAGON 1 MG/VIAL IM PRN (10:38)
[2021-09-04] MEDS ORDERED: D50W 25 GM/50 ML SYRINGE IV PRN (10:38)
[2021-09-04] MEDS ORDERED: INSULIN -REGULAR HUMAN 50 UNIT/0.5 ML ML SQ SCH (11:30)
[2021-09-04 13:11] VITALS: BP 119/75; TEMP 96.9
--- NOTE | 2021-09-04 13:27 | PN ---
Date of Progress Note: 09/04/2021 Reason For Service: Small bowel obstruction, incarcerated ventral hernia. Subjective: The patient is doing well. No complaint. No nausea. No vomiting. Ambulating. Passin g flatus. Review of Systems: Ten points otherwise unremarkable. Objective: Chest: Clear. Abdomen: Soft and depressible. Intact surgical site. Bowel sounds positive. Extremities: Good capillary refill. Plan: The patient is tolerating diet, so he will be able to go home. Follow up in my office in 1 we ek. Call for appointment at [phone]. May take showers with dressings off. The patient advised the importance of no heavy lifting. NATALIIA/TARIK Voice ID: [id number] Report ID: [id number]
--- NOTE | 2021-09-04 20:28 | P.DS ---
Admission Date: 09/02/21 Discharge Date: 09/04/21 Disposition: ROUTINE DISCHARGE Discharge Condition: GOOD Reason for Admission: Abdominal pain, SBO Consultations: General Surgery - Dr. Paez Procedures: CT Abd/Pelvis (09/02): FINDINGS: Multiple small pulmonary nodules are seen in the lung bases. Mild diffuse fatty liver is present. Significant distention of the stomach with fluid. The spleen, pancreas, adrenal glands and kidneys within normal limits. Umbilical hernia is present containing single small bowel loop. There is fluid in the hernia sac likely indicating hernia incarceration. Moderately distended small bowel loops are present throughout the abdomen compatible with moderate mechanical bowel obstruction. Mild sigmoid diverticulosis. The appendix is normal. No free air, significant free fluid or abscess. No evidence of significant lymphadenopathy. Moderate lumbar and lumbosacral degenerative changes. IMPRESSION: Moderate mechanical bowel obstruction is present caused by moderate-sized incarcerated umbilical hernia containing small bowel loop. Exploratory laparotomy, lysis of adhesions, repair of incarcerated umbilical hernia (09/02) by Dr. Paez Problem List Small bowel obstruction secondary to incarcerated hernia Brief History of Present Illness: 41-year-old gentleman with a history of obesity, obstructive sleep apnea, substance abuse, umbilical hernia presented to the ED with a complaint of abdominal pain of sudden onset. Patient was somnolent after receiving IV morphine for pain and could not provide any history. CT abdomen and pelvis done in the ED demonstrated incarcerated umbilical hernia with small bowel obstruction. General surgery Dr. Paez contacted who is planning on emergent surgery. Hospital Course: Patient taken to OR and underwent repair as noted above. Postoperative course was uncomplicated and his diet was slowly advanced to soft diet. He was deemed stable for discharge home, to follow up with Dr. Paez in ~2 weeks. Vital Signs/Physical Exam: Temp Pulse Resp BP Pulse Ox 96.9 F 78 16 119/75 97 09/04/21 12:00 09/04/21 12:00 09/04/21 12:00 09/04/21 12:00 09/04/21 12:00 General: Alert, In no apparent distress Respiratory: Clear to auscultation bilaterally, Normal air movement Cardiovascular: Regular rate/rhythm, Normal S1 S2 Gastrointestinal: Normal bowel sounds, Soft and benign Musculoskeletal: No tenderness Integumentary: No significant lesion Neurological: Normal speech, Normal affect Laboratory Data at Discharge: WBC 8.30 K/uL (4.3-10.9) D 09/04/21 05:09 Hgb 12.1 g/dL (13.6-17.9) L 09/04/21 05:09 Hct 37.4 % (39.6-49.0) L 09/04/21 05:09 Plt Count 266 K/uL (152-406) 09/04/21 05:09 Sodium 140 mmol/L (136-145) 09/04/21 05:09 Potassium 3.8 mmol/L (3.5-5.1) 09/04/21 05:09 BUN 13 mg/dL (7-18) 09/04/21 05:09 Creatinine 0.60 mg/dL (0.55-1.3) 09/04/21 05:09 Glucose 84 mg/dL (74-106) 09/04/21 05:09 Phosphorus 3.4 mg/dL (2.5-4.9) 09/03/21 05:32 Magnesium 2.7 mg/dL (1.8-2.4) H 09/03/21 05:32 Total Bilirubin 1.1 mg/dL (0.2-1.0) H 09/03/21 05:32 AST 16 U/L (15-37) 09/03/21 05:32 ALT 24 U/L (12-78) 09/03/21 05:32 Alkaline Phosphatase 48 U/L (45-117) 09/03/21 05:32 Lipase 64 U/L (73-393) L 09/02/21 07:58 Home Medications: Pantoprazole [Protonix Tab*] 40 mg PO DAILYAC #30 tab 01/25/19 Codeine/APAP [Tylenol W/Codeine #3 tab] 1 tab PO Q8HP PRN #10 tab 09/04/21 New Medications: Codeine/APAP [Tylenol W/Codeine #3 tab] 1 tab PO Q8HP PRN #10 tab PRN Reason: Pain Physician Discharge Instructions: You had an incarcerated umbilical hernia that was causing blockage of your intestines. You underwent surgical correction by Dr. Paez. Discharged home. Follow up with Dr. Paez in 1 week. Continue GI soft / low fiber diet. No antibiotics required. Activity: Ad angella Followup: Pete Paez MD [ACTIVE - CAN ADMIT] - (Call to schedule appointment in one week.) Time spent managing pt's care (in minutes): 45
--- NOTE | 2021-09-05 07:34 | EKG ---
Test Date: 2021-09-02 Test Time: 09:58:38 Sponge Packer: TU MEASUREMENT RESULTS: Intervals: Rate: 79 AR: 154 QRSD: 92 QT: 396 QTc: 454 [place]: P: 71 AR: 154 QRS: 159 T: 67 INTERPRETIVE STATEMENTS: Sinus rhythm with fusion complexes Right axis deviation Abnormal ECG Compared to ECG 09/07/2019 02:18:44 Fusion complex(es) now present Right-axis deviation now present Sinus arrhythmia no longer present Left anterior fascicular block no longer present Electronically Signed On 09-05-21 07:27:03 [employer] SCI[employer] by Saqib Boyle
== END 2021-09-04 14:01 | disposition home or self-care (01) | DRG 353 ==
LOC: ER 06:48 → ERHOLD 10:26 → 2ND 13:55
PROVIDERS: ADMIT Internal Medicine; ATTEND Internal Medicine
PROC: 0WQF0ZZ Repair Abdominal Wall, Open Approach (ICD-10-PCS; principal; 2021-09-02 10:30)
DX: K42.0 Umbilical hernia with obstruction, without gangrene (principal); G92.8 Other toxic encephalopathy; Z68.41 Body mass index [BMI] 40.0-44.9, adult; G47.33 Obstructive sleep apnea (adult) (pediatric); E66.9 Obesity, unspecified; T40.2X5A Adverse effect of other opioids, initial encounter; Y92.239 Unspecified place in hospital as the place of occurrence of the external cause; Z20.822 Contact with and (suspected) exposure to COVID-19
CPT/HCPCS: 36415; 74177; 80048; 80053; 80076; 82565; 82947; 83690; 83735; 84100; 85025; 88302; 93005; 94010; 96374; 96375; 99284; J0330; J1100; J1650; J2405; J2543; J2704; J2710; J3010; J3480; J7030; J7120; Q9967; U0003